=== PATIENT | male | born 1955 | race Caucasian/White ===

== ENCOUNTER 2017-11-15 09:46 | Outpatient (CLI) | payer BC ==
[2017-11-15] MEDS ORDERED: ISOVUE-370 76%-LOCM 1 ML ONE (12:50)
== END 2017-11-15 09:47 | disposition home or self-care (01) ==
LOC: BICCT 09:46
PROVIDERS: ATTEND Physician Assistant
DX: I25.10 Atherosclerotic heart disease of native coronary artery without angina pectoris (principal); I10 Essential (primary) hypertension; I70.1 Atherosclerosis of renal artery
CPT/HCPCS: 74175

== ENCOUNTER 2018-10-05 09:56 | Outpatient (CLI) | payer BC ==
--- NOTE | 2018-10-05 12:59 | MRI ---
MRI OF THE ABDOMEN WITHOUT AND WITH CONTRAST: COMPARISON: None. HISTORY: Acute cholecystitis. Cholelithiasis with obstruction. Epigastric pain. The patient has a drainage tube in the right side of the abdomen. TECHNIQUE: Multiplanar, multisequence MR images were obtained of the abdomen without and with IV contrast. MRCP images were performed. FINDINGS: The gallbladder contains a thickened wall. There is a tract extending from the right abdominal wall down towards the gallbladder and there likely is a percutaneous cholecystotomy tube in the gallbladde r. Small dependent filling defects in the gallbladder likely represent gallstones. No intrahepatic biliary dilatation or common bile duct dilatation is seen. No focal liver masses are seen. No abnormal signal is seen on out of phase images in the liver to garcía ggest fatty infiltration. The kidneys, adrenal glands, spleen, and pancreas are unremarkable. No abdominal adenopathy is seen. No abnormal enhancement is seen within the solid organs. There are small bilateral pleural effusions. The osseous structures are unremarkable. IMPRESSION: 1. Cholelithiasis without evidence of biliary dilatation. 2. There is thickening of the gallbladder wall which suggests acute cholecystitis. POS: [facility]
== END 2018-10-05 09:57 | disposition home or self-care (01) ==
LOC: SCSMRI 09:56
PROVIDERS: ATTEND Internal Medicine Gastroenterology
DX: K80.81 Other cholelithiasis with obstruction (principal); R10.13 Epigastric pain; K21.9 Gastro-esophageal reflux disease without esophagitis; K82.8 Other specified diseases of gallbladder
CPT/HCPCS: 74183

== ENCOUNTER 2018-10-18 12:18 | Outpatient (CLI) | payer BC ==
[2018-10-18 15:01] LABS: #Basophils 0.1 thou/uL (0.0-0.2); #Eosinphils 0.2 thou/uL (0.0-0.7); #Monocytes 0.7 thou/uL (0.11-0.59); #Neutrophils 6.9 thou/uL (1.40-6.50); %Basophils 0.7 % (0.0-1.0); %Eosinophils 2.2 % (0.0-10.0); %Lymphocytes 20.4 % (21.0-51.0); %Monocytes 6.7 % (0.0-10.0); Hemoglobin 14.3 g/dL (14.0-18.0); Mean Corpuscular HGB CONC 32.9 g/dL (32.0-36.0); Mean Corpuscular Hemoglobin 28.6 pg (27.0-31.0); Mean Corpuscular Volume 87.1 fL (78.0-98.0); Mean Platelet Volume 7.7 fL (7.4-10.4); Platelet Count 258 thou/uL (130-400); RBC Distribution Width 13.8 % (11.5-14.5); White Blood Cell (WBC) Count 9.9 thou/uL (4.8-10.8)
[2018-10-18 15:35] LABS: ALT (SGPT) Less than 7 U/L (8-55); AST (SGOT) 14 U/L (5-34); Albumin 3.7 g/dL (3.4-4.8); Alkaline Phosphatase 94 U/L (40-150); Anion Gap 14 mmol/L (10-20); BUN (Urea Nitrogen) 27 mg/dL (8.4-25.7); Bilirubin, Total 0.5 mg/dL (0.2-1.2); Calc. Creatinine Clearance 0 mL/min (70-130); Calcium 9.7 mg/dL (7.8-10.44); Carbon Dioxide 26 mmol/L (23-31); Chloride 102 mmol/L (98-107); Estimated GFR-MDRD 45; Globulin 3.3 g/dL (2.4-3.5); Glucose 289 mg/dL (80-115); Potassium 4.3 mmol/L (3.5-5.1); Sodium 138 mmol/L (136-145)
== END 2018-10-18 12:19 | disposition home or self-care (01) ==
LOC: LABBT 12:18
PROVIDERS: ATTEND Internal Medicine Cardiovascular Disease
DX: Z01.812 Encounter for preprocedural laboratory examination (principal)
CPT/HCPCS: 80053; 85025

== ENCOUNTER → 2018-10-19 | Day surgery (SDC) | payer BC ==
[2018-10-18 13:30] VITALS: BMI 30.2
[~2018-10-19] MED LIST: Iopamidol 370 76% 100 ML VIAL ONE
== END ==
LOC: CCL 10:12
PROVIDERS: ATTEND Internal Medicine Cardiovascular Disease
DX: I42.9 Cardiomyopathy, unspecified (principal); Z53.9 Procedure and treatment not carried out, unspecified reason; Z88.5 Allergy status to narcotic agent; Z88.8 Allergy status to other drugs, medicaments and biological substances; Z91.09 Other allergy status, other than to drugs and biological substances; Z79.899 Other long term (current) drug therapy
CPT/HCPCS: 93458

== ENCOUNTER 2018-10-24 13:32 | Inpatient (IN) | payer BC ==
[2018-10-24] MEDS ORDERED: Diazepam 5 MG TAB PO SCH (14:00)
[2018-10-24] MEDS ORDERED: HOLD HYPOGLYCEMIC MEDS AM OF CATH FS SCH (14:00)
[2018-10-24] MEDS: Sodium Chloride 0.9% 1,000 ML IV SCH (15:58)
[2018-10-24] MEDS ORDERED: predniSONE 20 MG TAB PO SCH (16:15)
[2018-10-24] MEDS ORDERED: diphenhydrAMINE 25 MG CAP PO SCH (16:15)
[2018-10-24 19:01] LABS: Anion Gap 14 mmol/L (10-20); BUN (Urea Nitrogen) 24 mg/dL (8.4-25.7); Calc. Creatinine Clearance 88 mL/min (70-130); Calcium 9.5 mg/dL (7.8-10.44); Carbon Dioxide 23 mmol/L (23-31); Chloride 103 mmol/L (98-107); Estimated GFR-MDRD 59; Glucose 206 mg/dL (80-115); Potassium 4.2 mmol/L (3.5-5.1); Sodium 136 mmol/L (136-145)
[2018-10-24] MEDS ORDERED: DC ENOXAPARIN NIGHT BEFORE CATH FS SCH (22:00)
[2018-10-25] MEDS: predniSONE 20 MG TAB PO SCH ×2 (00:27→05:56)
[2018-10-25] MEDS: diphenhydrAMINE 25 MG CAP PO SCH ×2 (00:30→05:56)
[2018-10-25] MEDS: Sodium Chloride 0.9% 1,000 ML IV SCH (02:27)
[2018-10-25] MEDS ORDERED: Midazolam HCl 2 mg/2 ml Vial ONE (07:58)
[2018-10-25] MEDS ORDERED: Nitroglycerin 0.4 MG TAB (25 Tab Bottle) SL PRN (08:53)
[2018-10-25] MEDS ORDERED: Sodium Chloride 0.9% 200 ML IV PRN (08:53)
[2018-10-25] MEDS ORDERED: Sodium Chloride 0.9% 1,000 ML IV SCH (09:00)
[2018-10-25] MEDS ORDERED: INSULIN DETEMIR SC PRN (12:44)
[2018-10-25] MEDS ORDERED: Diazepam 5 MG TAB PO PRN (12:45)
[2018-10-25] MEDS ORDERED: Communication Order-Pharmacy FS SCH (12:45)
--- NOTE | 2018-10-25 13:25 | CON ---
DATE OF CONSULTATION: 10/25/2018 REASON FOR CONSULTATION: Evaluate patient for coronary artery bypass grafting. HISTORY OF PRESENT ILLNESS: Mr. Aponte is a very pleasant 63-year-old gentleman who on September 05, 2018, was admitted to the bed with septic cholecystitis. He was placed on antibiotics, was in the hospital for approximately 4 days and discharged to home. He returned after less than a week to the hospital, was readmitted with septic cholecystitis. At this time, he had a percutaneous drain placed into his gallbladder and was continued on antibiotics. He was tried on Levaquin and Flagyl, but the Flagyl made him sick. He has been on Levaquin since that time. Echo performed at that time showed ejection fraction of 35-40 percent. He has a history of coronary artery disease status post stenting of a diagonal and this subsequently occluded. He underwent recent PET scan by Dr. Georges showing anterior ischemia. He was brought in for elective cardiac catheterization today. Catheterization shows critical lesions in his LAD, diagonal bifurcation, ramus, proximal circumflex artery, and main right coronary artery. Bypassable targets included LAD, diagonal, ramus, OM and distal right coronary. His radial artery is patent and Gee's test is equivocal. This will need to be repeated with plethysmography. From a symptomatology standpoint, he has not had any cardiac symptoms. He does woodworking at home. He also cares for 3 large dogs. He does not do any vigorous aerobic exercise, but does ride a stationary bicycle for approximately 30 minutes without chest pain or shortness of breath. PAST MEDICAL HISTORY: 1. Coronary artery disease. 2. Hypertension. 3. Diabetes mellitus-insulin dependent. 4. Dyslipidemia. 5. History of previous myocardial infarction. 6. Diverticulosis. 7. Acute cholecystitis, status post drainage procedure. PAST SURGICAL HISTORY: 1. Multiple orthopedic surgeries. 2. Tonsillectomy. SOCIAL HISTORY: He is a former smoker. He is and accompanied by his . He is not use alcohol or other drugs. ALLERGIES: 1. IODINE. 2. MORPHINE. REVIEW OF SYSTEMS: A 10-point review of systems is performed is negative except as above. PHYSICAL EXAMINATION: GENERAL: This is a well-developed, well-nourished male, resting comfortably in his room post catheterization. VITAL SIGNS: Height is 6 feet 2 inches, weight is 228 pounds, BSA is 2.32, temperature is 97.5, pulse is 69 and regular, blood pressure is 128/60. HEENT: Sclerae nonicteric. Pupils are equal and round bilaterally. NECK: Supple without carotid bruit. CHEST: Clear bilaterally. HEART: Rhythm is regular without murmur. ABDOMEN: Soft and nontender. He has a drain on the right flank, passing through the liver and the gallbladder. EXTREMITIES: There is no signs of clubbing or edema. He does have chronic venous stasis changes below the knees bilaterally. PSYCHIATRIC: He is awake, alert, and oriented to person, place, and time. LABORATORY DATA: Of note, his potassium is 4.2, creatinine is 1.24. Blood sugars have ranged from 127-258, hemoglobin is 14.3, platelet count is 258,000. PT/INR is 1.0. ASSESSMENT AND PLAN: This is a pleasant 63-year-old gentleman who from a cardiac standpoint has 3-vessel disease with depressed left ventricular function. Coronary bypass grafting has been recommended. I have discussed left internal mammary artery, left radial artery, and saphenous vein grafts to potential targets including left anterior descending artery, diagonal, ramus, obtuse marginal, and right coronary. He is agreeable and wishes to proceed as soon as possible. In regard to his septic cholecystitis, his drain is nonfunctional. I have discussed this with Dr. Phillip. They are going to do a tube check tomorrow and hopefully reposition his drain back inside his gallbladder. We will continue his antibiotics and make plans for surgical intervention on Monday. PLANS: For surgical intervention on Monday and start. Job ID: [id number]
--- NOTE | 2018-10-25 14:14 | RAD ---
AP CHEST: History: Pre-operative chest radiograph. Date: 10-25-18 Comparison: 03-05-12 FINDINGS: AP chest demonstrates calcification of the aorta. The lungs are well aerated. No evidence of active i ntrathoracic disease seen. No evidence of effusions, pneumonia, or pneumothorax seen. IMPRESSION: Unremarkable AP chest. POS: [facility]
--- NOTE | 2018-10-25 15:50 | CT ---
NONCONTRAST ENHANCED CT ABDOMEN WITHOUT CONTRAST: Indication: Question of position of cholecystostomy catheter. Technique: Noncontrast enhanced CT images of the abdomen performed. FINDINGS: The lung bases are unremarkable. No evidence of free intraperitoneal air seen. Extensive sigmoid colonic diverticulosis is present. The liver and spleen are unremarkable. There is a cholecystostomy tube distal tip coiled within the e xpected location of the gallbladder fundus. The pancreas is unremarkable. The adrenal glands and kidn eys are unremarkable. IMPRESSION: Cholecystostomy tube appears to be in the gallbladder fundus. It has not pulled out. No adjacent area s of biloma seen. POS: [facility]
[2018-10-25] MEDS: Pioglitazone HCl 15 MG TAB PO SCH (16:29)
--- NOTE | 2018-10-25 16:35 | PDOC.GSPN ---
Surgery Progress Note: Subj - Subjective Patient reports: no new complaints Surgery Progress Note: Obj - Vital signs Vital signs: Vital Signs - Most Recent Temp Pulse Resp BP Pulse Ox 97.4 F L 73 20 136/68 95 10/25/18 16:14 10/25/18 16:14 10/25/18 16:14 10/25/18 16:14 10/25/18 16:14 - Physical Exam General: no distress Abdomen: soft, non tender Wound: other (The drain has some bilious drainage) Surgery Progress Note: Results - Labs Result Diagrams: 10/24/18 18:29 Lab results: Laboratory Results - last 24 hr 10/25/18 10/25/18 07:09 11:14 POC Glucose 258 H 252 H Surgery Progress Note: A/P - Problem (1) Chronic cholecystitis Current Visit: Yes Code(s): K81.1 - CHRONIC CHOLECYSTITIS Status: Acute - Plan Plan: He needs cholecystostomy tube to stay in for now. -Put in for CT to evaluate for placement -If not in gallbladder, will have IR replace.
[2018-10-25] MEDS ORDERED: metFORMIN 850 MG TAB PO SCH (17:00)
[2018-10-25] MEDS ORDERED: Non-Formulary Item 1 EACH (Pioglitazone Hcl/Metformin Hcl [Actoplus Met] 1 TABLET) PO SCH (17:00)
[2018-10-25] MEDS ORDERED: Dextrose 5% in Water 1,000 ML IV PRN (17:14)
[2018-10-25] MEDS ORDERED: Dextrose 50% Abboject 50 ML SYRINGE IVP PRN (17:14)
[2018-10-25] MEDS: HumaLOG 300 UNITS/3 ML VIAL SC PRN ×2 (17:40→21:16)
[2018-10-25] MEDS: Amlodipine 5 MG TAB PO SCH (20:33)
[2018-10-25] MEDS: Ezetimibe 10 MG TAB PO SCH (20:34)
[2018-10-25] MEDS: Lisinopril 20 MG TAB PO SCH (20:34)
[2018-10-25] MEDS: Aspirin 81 mg Enteric Coated Tablet PO SCH (20:34)
[2018-10-25] MEDS ORDERED: Lisinopril 20 MG TAB PO SCH (21:00)
[2018-10-25] MEDS ORDERED: Ezetimibe 10 MG TAB PO SCH (21:00)
[2018-10-25] MEDS ORDERED: Amlodipine 5 MG TAB PO SCH (21:00)
[2018-10-26 05:27] LABS: Anion Gap 15 mmol/L (10-20); BUN (Urea Nitrogen) 37 mg/dL (8.4-25.7); Calc. Creatinine Clearance 86 mL/min (70-130); Calcium 8.9 mg/dL (7.8-10.44); Carbon Dioxide 20 mmol/L (23-31); Chloride 101 mmol/L (98-107); Estimated GFR-MDRD 57; Glucose 265 mg/dL (80-115); Potassium 4.2 mmol/L (3.5-5.1); Sodium 132 mmol/L (136-145)
[2018-10-26] MEDS: HumaLOG 300 UNITS/3 ML VIAL SC PRN ×4 (06:15→21:03)
[2018-10-26] MEDS: Pioglitazone HCl 15 MG TAB PO SCH ×2 (08:25→16:44)
[2018-10-26] MEDS ORDERED: Furosemide 40 MG TAB PO SCH (09:00)
[2018-10-26] MEDS ORDERED: Non-Formulary Item 1 EACH (Empagliflozin [Jardiance] 1 TAB) PO SCH (09:00)
[2018-10-26] MEDS ORDERED: PRE FILLED SC SCH (09:00)
[2018-10-26] MEDS ORDERED: DEXILANT 30 MG PO SCH (09:00)
[2018-10-26] MEDS ORDERED: Non-Formulary Item 1 EACH (Vit D3-Vit K/Berberine/Hops [Ostera Tablet] 1 TAB) PO SCH (09:00)
[2018-10-26] MEDS ORDERED: INSULIN GLARGINE SC SCH (09:00)
--- NOTE | 2018-10-26 18:23 | PDOC.PN ---
- Subjective Encounter Start Date: 10/26/18 Encounter Start Time: 17:30 Subjective: no chest pain or sob -: will have cabg on monday -: is ambulating well on the floor - Objective MAR Reviewed: Yes Vital Signs & Weight: Vital Signs (12 hours) Temp Pulse Resp BP BP Pulse Ox 10/26/18 15:07 97.9 F 65 16 124/69 96 10/26/18 11:24 97.5 F L 63 18 124/72 95 10/26/18 07:41 97.3 F L 64 14 132/73 94 L Weight Weight 230 lb 4.8 oz I&O: 10/25/18 10/26/18 10/27/18 06:59 06:59 06:59 Intake Total 2340 2820 Output Total 400 Balance 2340 2420 Result Diagrams: 10/26/18 04:42 Additional Labs: Accuchecks 10/26/18 10/26/18 10/25/18 10:44 06:15 20:47 POC Glucose 364 H 234 H 261 H Phys Exam - Physical Examination HEENT: PERRLA, moist MMs Neck: no JVD, supple Respiratory: no wheezing, no rales Cardiovascular: RRR, no significant murmur Gastrointestinal: soft, non-tender, positive bowel sounds percut biliary drain+ nonfunctional at present Musculoskeletal: no edema, pulses present Neurological: non-focal, moves all 4 limbs Psychiatric: normal affect, A&O x 3 Dx/Plan (1) CAD (coronary artery disease) Code(s): I25.10 - ATHSCL HEART DISEASE OF [place] CORONARY ARTERY W/O ANG PCTRS Status: Acute Qualifiers: Coronary Disease-Associated Artery/Lesion type: [place] artery [place] vs. transplanted heart: [place] heart Associated angina: without angina Qualified Code(s): I25.10 - Atherosclerotic heart disease of [place] coronary artery without angina pectoris Comment: for cabg on Monday (2) DM type 2 (diabetes mellitus, type 2) Status: Chronic Qualifiers: Diabetes mellitus hockey instructor insulin use: with fci use Diabetes mellitus complication status: with unspecified complications Qualified Code(s) : E11.8 - Type 2 diabetes mellitus with unspecified complications; Z79.4 - county director welfare (current) use of insulin (3) HTN (hypertension) Code(s): I10 - ESSENTIAL (PRIMARY) HYPERTENSION Status: Chronic Qualifiers: Hypertension type: essential hypertension Qualified Code(s): I10 - Essential (primary) hypertension (4) Dyslipidemia Code(s): E78.5 - HYPERLIPIDEMIA, UNSPECIFIED Status: Chronic (5) Chronic cholecystitis Code(s): K81.1 - CHRONIC CHOLECYSTITIS Status: Chronic Comment: had cholecystitis with sepsis 09/05/2018 s/p percut cholecystostomy tube - Plan lantus 25u bid, home dose of jardiance -: metformin 1g bid, januvia 50mg daily both to be dc'd on monday night -: continue aspirin, toprol xl, lisinopril, norvasc, zetia -: will add crestor -: levaquin 500mg daily for cholecystitis * . Review of Systems - Medications/Allergies Allergies/Adverse Reactions: Allergies Allergy/AdvReac Type Severity Reaction Status Date / Time iodine Allergy Anaphylaxis Verified 10/18/18 13:27 morphine Allergy Anxiety Verified 10/18/18 13:27 opiates Allergy Anxiety Uncoded 10/18/18 13:26 Medications: Current Medications Amlodipine Besylate (Norvasc) 5 mg PO QPM [facility] Last Admin: 10/25/18 20:33 Dose: 5 mg Aspirin (Ecotrin) 81 mg PO QPM [facility] Last Admin: 10/25/18 20:34 Dose: 81 mg Dextrose/Water (Dextrose 50%) 25 gm IVP PRN PRN PRN Reason: HYPOGLYCEMIA PROTOCOL Diazepam (Valium) 5 mg PO HSPRN PRN PRN Reason: Insomnia Ezetimibe (Zetia) 10 mg PO HS [facility] Last Admin: 10/25/18 20:34 Dose: 10 mg Glucagon (Glucagon) 1 mg IM PRN PRN PRN Reason: HYPOGLYCEMIA PROTOCOL Levofloxacin 750 mg/ Device 150 mls @ 100 mls/hr IVPB Q24HR [facility] Last Admin: 10/26/18 14:20 Dose: 150 mls Vancomycin HCl 1.5 gm/ Sodium (Chloride) 300 mls @ 200 mls/hr IVPB ONCALL-OR [facility] Dextrose/Water (D5w) 1,000 mls @ 0 mls/hr IV INF PRN PRN Reason: HYPOGLYCEMIA PROTOCOL Insulin Glargine 1 units/ (Miscellaneous Medication) 0.01 mls @ 0 mls/hr SC QAM [facility] Insulin Human Lispro (Humalog) 0 units SC .MODERATE SLIDING SC PRN; Protocol PRN Reason: MODERATE SLIDING SCALE Last Admin: 10/26/18 16:45 Dose: 6 units Insulin Human Lispro (Humalog) 0 units SC .BEDTIME SLIDING SC PRN; Protocol PRN Reason: BEDTIME SLIDING SCALE Last Admin: 10/25/18 21:16 Dose: 3 unit Lisinopril (Zestril) 20 mg PO QPM [facility] Last Admin: 10/25/18 20:34 Dose: 20 mg Metoprolol Succinate (Toprol Xl) 50 mg PO QPM [facility] Last Admin: 10/25/18 20:34 Dose: 50 mg Miscellaneous Information (Communication Order-Pharmacy) 1 each FS ASDIR [facility] Nitroglycerin (Nitrostat) 0.4 mg SL Q5MIN PRN PRN Reason: Chest Pain Pantoprazole Sodium (Protonix) 40 mg PO DAILY [facility] Last Admin: 10/26/18 08:26 Dose: 40 mg [Ostera Tablet] 1 (Tab) 0 each PO DAILY [facility] Empagliflozin [ (Jardiance] 10 Mg) 0 each PO QAM [facility] Pioglitazone HCl (Actos) 15 mg PO BID-WM [facility] Last Admin: 10/26/18 16:44 Dose: 15 mg Sodium Chloride (Flush - Normal Saline) 10 ml IVF Q12HR [facility] Last Admin: 10/26/18 08:26 Dose: 10 ml Sodium Chloride (Flush - Normal Saline) 10 ml IVF PRN PRN PRN Reason: Saline Flush
[2018-10-26] MEDS: Lisinopril 20 MG TAB PO SCH (20:50)
[2018-10-26] MEDS: Ezetimibe 10 MG TAB PO SCH (20:51)
[2018-10-26] MEDS: Aspirin 81 mg Enteric Coated Tablet PO SCH (20:51)
[2018-10-26] MEDS: Amlodipine 5 MG TAB PO SCH (20:54)
[2018-10-26] MEDS: Insulin Glargine 25 UNITS in Pre-Filled Syringe SC SCH (20:56)
[2018-10-26] MEDS ORDERED: Rosuvastatin 20 MG TAB PO SCH (21:00)
[2018-10-27] MEDS: metFORMIN 500 MG TAB PO SCH ×2 (08:22→17:53)
[2018-10-27] MEDS: Pioglitazone HCl 15 MG TAB PO SCH ×2 (08:22→17:53)
[2018-10-27] MEDS: Alogliptin 25 MG TAB PO SCH (08:22)
[2018-10-27] MEDS: Insulin Glargine 25 UNITS in Pre-Filled Syringe SC SCH ×2 (08:23→21:31)
[2018-10-27] MEDS: HumaLOG 300 UNITS/3 ML VIAL SC PRN ×2 (08:24→12:25)
--- NOTE | 2018-10-27 10:40 | PDOC.CTH ---
Cardiology Progress Note - Subjective Seen 10/26 at 1440 patient up walking in guerrier. No complaints. Awaiting CABG Monday. No CP, SOB or GAN - Objective Vital Signs Temp Pulse Resp BP BP Pulse Ox 10/27/18 08:20 97.7 F 63 16 190/88 H 97 10/27/18 04:00 97.9 F 61 18 164/81 H 95 10/26/18 23:00 97.5 F L 69 16 164/79 H 95 Weight 220 lb 12.8 oz 10/26/18 10/27/18 10/28/18 06:59 06:59 07:59 Intake Total 2820 1380 Output Total 400 1100 Balance 2420 280 - Physical Examination General/Neuro: alert & oriented x3 Neck: no JVD present Lungs: CTA Heart: RRR Abdomen: NT/ND - Telemetry Telemetry Rhythm: SR - Labs Result Diagrams: 10/26/18 04:42 - Assessment/Plan 1. ICMO 2. CAD 3. IDDM 4. Mixed HLD 5. Recent cholecystitis with sepsis and tube placement 08/2018. Tube still in place. No changes to care. Continue adjusting insulin as needed.
--- NOTE | 2018-10-27 10:45 | PDOC.CTH ---
Cardiology Progress Note - Subjective patient seen 10/27. Up walking in room. No CP, SOB or GAN. - Objective Vital Signs Temp Pulse Resp BP BP Pulse Ox 10/27/18 08:20 97.7 F 63 16 190/88 H 97 10/27/18 04:00 97.9 F 61 18 164/81 H 95 10/26/18 23:00 97.5 F L 69 16 164/79 H 95 Weight 220 lb 12.8 oz 10/26/18 10/27/18 10/28/18 06:59 06:59 07:59 Intake Total 2820 1380 Output Total 400 1100 Balance 2420 280 - Physical Examination General/Neuro: alert & oriented x3 Neck: no JVD present Lungs: CTA Heart: RRR Abdomen: NT/ND - Telemetry Telemetry Rhythm: SR - Labs Result Diagrams: 10/27/18 10:53 10/27/18 10:53 - Assessment/Plan 1. ICMO 2. CAD 3. IDDM 4. HTN 5. Recent episode of sepsis from cholecystitis and s/p tube placement 6. Mixed HLD For CABG Monday.
[2018-10-27 11:09] LABS: #Eosinphils 0.1 thou/uL (0.0-0.7); #Lymphocytes 1.3 thou/uL (1.20-3.40); #Monocytes 0.6 thou/uL (0.11-0.59); #Neutrophils 4.5 thou/uL (1.40-6.50); %Basophils 0.4 % (0.0-1.0); %Eosinophils 1.5 % (0.0-10.0); %Lymphocytes 19.7 % (21.0-51.0); %Monocytes 8.7 % (0.0-10.0); %Neutrophils 69.8 % (42.0-75.0); Hemoglobin 14.8 g/dL (14.0-18.0); Mean Corpuscular HGB CONC 31.9 g/dL (32.0-36.0); Mean Corpuscular Hemoglobin 27.6 pg (27.0-31.0); Mean Corpuscular Volume 86.5 fL (78.0-98.0); Mean Platelet Volume 7.6 fL (7.4-10.4); Platelet Count 245 thou/uL (130-400); RBC Distribution Width 13.7 % (11.5-14.5); Red Blood Cell (RBC) Count 5.37 mill/uL (4.70-6.10); White Blood Cell (WBC) Count 6.4 thou/uL (4.8-10.8)
[2018-10-27 11:16] LABS: PTT 25.9 SEC (22.9-36.1); Prothrombin Time 13.5 SEC (12.0-14.7)
[2018-10-27 11:32] LABS: ALT (SGPT) 12 U/L (8-55); AST (SGOT) 13 U/L (5-34); Albumin 3.5 g/dL (3.4-4.8); Alkaline Phosphatase 128 U/L (40-150); Anion Gap 11 mmol/L (10-20); BUN (Urea Nitrogen) 22 mg/dL (8.4-25.7); Bilirubin, Total 0.4 mg/dL (0.2-1.2); Calc. Creatinine Clearance 91 mL/min (70-130); Calcium 9.3 mg/dL (7.8-10.44); Carbon Dioxide 24 mmol/L (23-31); Chloride 102 mmol/L (98-107); Estimated GFR-MDRD 63; Glucose 328 mg/dL (80-115); Potassium 4.2 mmol/L (3.5-5.1); Protein, Total 6.5 g/dL (5.8-8.1); Sodium 133 mmol/L (136-145)
[2018-10-27] MEDS: Empagliflozin [Jardiance] 10 MG PO SCH ×2 (12:10→12:24)
--- NOTE | 2018-10-27 12:35 | PDOC.PN ---
- Subjective Encounter Start Date: 10/27/18 Encounter Start Time: 07:30 Subjective: no chest pain or sob -: is amb in hallway -: says he intolerant to statins and gets muscle aches - Objective MAR Reviewed: Yes Vital Signs & Weight: Vital Signs (12 hours) Temp Pulse Resp BP BP Pulse Ox 10/27/18 11:54 69 18 131/74 98 10/27/18 08:20 97.7 F 63 16 190/88 H 97 10/27/18 04:00 97.9 F 61 18 164/81 H 95 Weight Weight 220 lb 12.8 oz I&O: 10/26/18 10/27/18 10/28/18 06:59 06:59 07:59 Intake Total 2820 1380 Output Total 400 1100 Balance 2420 280 Result Diagrams: 10/27/18 10:53 10/27/18 10:53 Additional Labs: Accuchecks 10/27/18 10/26/18 10/26/18 05:53 20:30 16:37 POC Glucose 236 H 265 H 273 H Phys Exam - Physical Examination HEENT: PERRLA, moist MMs Neck: no JVD, supple Respiratory: no wheezing, no rales Cardiovascular: RRR, no significant murmur Gastrointestinal: soft, non-tender, positive bowel sounds Musculoskeletal: no edema, pulses present Neurological: non-focal, moves all 4 limbs Psychiatric: normal affect, A&O x 3 Dx/Plan (1) CAD (coronary artery disease) Code(s): I25.10 - ATHSCL HEART DISEASE OF [place] CORONARY ARTERY W/O ANG PCTRS Status: Acute Qualifiers: Coronary Disease-Associated Artery/Lesion type: [place] artery [place] vs. transplanted heart: [place] heart Associated angina: without angina Qualified Code(s): I25.10 - Atherosclerotic heart disease of [place] coronary artery without angina pectoris Comment: for cabg on Monday (2) DM type 2 (diabetes mellitus, type 2) Status: Chronic Qualifiers: Diabetes mellitus long term care administrator insulin use: with detention use Diabetes mellitus complication status: with unspecified complications Qualified Code(s) : E11.8 - Type 2 diabetes mellitus with unspecified complications; Z79.4 - assisted (current) use of insulin (3) HTN (hypertension) Code(s): I10 - ESSENTIAL (PRIMARY) HYPERTENSION Status: Chronic Qualifiers: Hypertension type: essential hypertension Qualified Code(s): I10 - Essential (primary) hypertension (4) Dyslipidemia Code(s): E78.5 - HYPERLIPIDEMIA, UNSPECIFIED Status: Chronic (5) Chronic cholecystitis Code(s): K81.1 - CHRONIC CHOLECYSTITIS Status: Chronic Comment: had cholecystitis with sepsis 09/05/2018 s/p percut cholecystostomy tube - Plan for cabg on monday -: is on asp, zetia, norvasc, lisinopril, toprol xl -: continue actos, lantus, metformin -: levaquin for cholecystitis -: baseline labs prior to cabg is normal * . Review of Systems - Medications/Allergies Allergies/Adverse Reactions: Allergies Allergy/AdvReac Type Severity Reaction Status Date / Time iodine Allergy Anaphylaxis Verified 10/27/18 06:47 morphine Allergy Anxiety Verified 10/27/18 06:47 [id number]-[id number] Reductase Allergy Verified 10/27/18 06:47 Inhibitor opiates Allergy Anxiety Uncoded 10/27/18 06:47 Medications: Current Medications Alogliptin Benzoate (Alogliptin) 12.5 mg PO DAILY [facility] Last Admin: 10/27/18 08:22 Dose: 12.5 mg Amlodipine Besylate (Norvasc) 5 mg PO QPM [facility] Last Admin: 10/26/18 20:54 Dose: 5 mg Aspirin (Ecotrin) 81 mg PO QPM [facility] Last Admin: 10/26/18 20:51 Dose: 81 mg Dextrose/Water (Dextrose 50%) 25 gm IVP PRN PRN PRN Reason: HYPOGLYCEMIA PROTOCOL Diazepam (Valium) 5 mg PO HSPRN PRN PRN Reason: Insomnia Ezetimibe (Zetia) 10 mg PO HS [facility] Last Admin: 10/26/18 20:51 Dose: 10 mg Glucagon (Glucagon) 1 mg IM PRN PRN PRN Reason: HYPOGLYCEMIA PROTOCOL Vancomycin HCl 1.5 gm/ Sodium (Chloride) 300 mls @ 200 mls/hr IVPB ONCALL-OR [facility] Dextrose/Water (D5w) 1,000 mls @ 0 mls/hr IV INF PRN PRN Reason: HYPOGLYCEMIA PROTOCOL Insulin Glargine 25 units/ (Miscellaneous Medication) 0.25 mls @ 0 mls/hr SC BID [facility] Last Admin: 10/27/18 08:23 Dose: 0.25 mls Levofloxacin 500 mg/ Device 100 mls @ 100 mls/hr IVPB 1400 [facility] Insulin Human Lispro (Humalog) 0 units SC .MODERATE SLIDING SC PRN; Protocol PRN Reason: MODERATE SLIDING SCALE Last Admin: 10/27/18 12:25 Dose: 6 units Insulin Human Lispro (Humalog) 0 units SC .BEDTIME SLIDING SC PRN; Protocol PRN Reason: BEDTIME SLIDING SCALE Last Admin: 10/26/18 21:03 Dose: 3 unit Lisinopril (Zestril) 20 mg PO QPM [facility] Last Admin: 10/26/18 20:50 Dose: 20 mg Metformin HCl (Glucophage) 1,000 mg PO BID-[facility] Last Admin: 10/27/18 08:22 Dose: 1,000 mg Metoprolol Succinate (Toprol Xl) 50 mg PO QPM [facility] Last Admin: 10/26/18 20:53 Dose: 50 mg Miscellaneous Information (Communication Order-Pharmacy) 1 each FS ASDIR [facility] Nitroglycerin (Nitrostat) 0.4 mg SL Q5MIN PRN PRN Reason: Chest Pain Pantoprazole Sodium (Protonix) 40 mg PO DAILY [facility] Last Admin: 10/27/18 08:23 Dose: 40 mg [Ostera Tablet] 1 (Tab) 0 each PO DAILY [facility] Empagliflozin [ (Jardiance] 10 Mg) 0 each PO QAM [facility] Last Admin: 10/27/18 12:24 Dose: 1 each Pioglitazone HCl (Actos) 15 mg PO BID-[facility] Last Admin: 10/27/18 08:22 Dose: 15 mg Rosuvastatin Calcium (Crestor) 20 mg PO HS [facility] Last Admin: 10/26/18 20:51 Dose: 20 mg Sodium Chloride (Flush - Normal Saline) 10 ml IVF Q12HR [facility] Last Admin: 10/26/18 20:50 Dose: 10 ml Sodium Chloride (Flush - Normal Saline) 10 ml IVF PRN PRN PRN Reason: Saline Flush
[2018-10-27] MEDS: Aspirin 81 mg Enteric Coated Tablet PO SCH (21:32)
[2018-10-27] MEDS: Ezetimibe 10 MG TAB PO SCH (21:32)
[2018-10-27] MEDS: Amlodipine 5 MG TAB PO SCH (21:32)
[2018-10-27] MEDS: Lisinopril 20 MG TAB PO SCH (21:32)
[2018-10-28] MEDS: Alogliptin 25 MG TAB PO SCH (08:18)
[2018-10-28] MEDS: metFORMIN 500 MG TAB PO SCH ×2 (08:18→16:08)
[2018-10-28] MEDS: Insulin Glargine 25 UNITS in Pre-Filled Syringe SC SCH ×2 (08:18→21:09)
[2018-10-28] MEDS: Pioglitazone HCl 15 MG TAB PO SCH ×2 (08:18→16:08)
[2018-10-28] MEDS: Empagliflozin [Jardiance] 10 MG PO SCH (08:18)
--- NOTE | 2018-10-28 10:08 | PDOC.CTH ---
Cardiology Progress Note - Subjective Patient out of room. Reviewed chart and tele. no overnight events. - Objective Vital Signs Temp Pulse Resp BP BP BP Pulse Ox 10/28/18 08:13 98 F 65 16 142/83 H 98 10/28/18 04:00 98.0 F 65 20 175/82 H 95 10/27/18 21:32 73 10/27/18 21:28 97.9 F 73 16 201/98 H 97 Weight 220 lb 10/27/18 10/28/18 10/29/18 05:59 06:59 06:59 Intake Total Output Total Balance - Telemetry Telemetry Rhythm: SR - Labs Result Diagrams: 10/27/18 10:53 10/27/18 10:53 - Assessment/Plan 1. ICMO 2. CAD 3. IDDM 4. HTN 5. Recent episode of sepsis from cholecystitis and s/p tube placement 6. Mixed HLD For CABG tomorrow. No changes on my part.
[2018-10-28] MEDS ORDERED: Docusate 100 MG CAP PO SCH (12:00)
[2018-10-28] MEDS ORDERED: Polyethylene Glycol 3350 17 GM Packet PO SCH (12:00)
--- NOTE | 2018-10-28 14:42 | PDOC.PN ---
- Subjective Encounter Start Date: 10/28/18 Encounter Start Time: 11:20 Subjective: no sob or chest pain -: is amb in hallway -: for cabg in am - Objective MAR Reviewed: Yes Vital Signs & Weight: Vital Signs (12 hours) Temp Pulse Resp BP BP Pulse Ox 10/28/18 11:11 98.1 F 71 16 170/82 H 98 10/28/18 08:15 98 10/28/18 08:13 98 F 65 16 142/83 H 98 10/28/18 04:00 98.0 F 65 20 175/82 H 95 Weight Weight 220 lb I&O: 10/27/18 10/28/18 10/29/18 05:59 06:59 06:59 Intake Total Output Total Balance Result Diagrams: 10/27/18 10:53 10/27/18 10:53 Additional Labs: Accuchecks 10/28/18 10/28/18 10/28/18 12:17 10:43 05:23 POC Glucose 192 H 273 H 161 H 10/27/18 10/27/18 20:32 16:43 POC Glucose 178 H 92 Phys Exam - Physical Examination HEENT: PERRLA, moist MMs Neck: no JVD, supple Respiratory: no wheezing, no rales Cardiovascular: RRR, no significant murmur Gastrointestinal: soft, non-tender, positive bowel sounds Musculoskeletal: no edema, pulses present Neurological: non-focal, moves all 4 limbs Psychiatric: normal affect, A&O x 3 Dx/Plan (1) CAD (coronary artery disease) Code(s): I25.10 - ATHSCL HEART DISEASE OF [place] CORONARY ARTERY W/O ANG PCTRS Status: Acute Qualifiers: Coronary Disease-Associated Artery/Lesion type: [place] artery [place] vs. transplanted heart: [place] heart Associated angina: without angina Qualified Code(s): I25.10 - Atherosclerotic heart disease of [place] coronary artery without angina pectoris Comment: for cabg on Monday (2) DM type 2 (diabetes mellitus, type 2) Status: Chronic Qualifiers: Diabetes mellitus mcfp insulin use: with vermin exterminator use Diabetes mellitus complication status: with unspecified complications Qualified Code(s) : E11.8 - Type 2 diabetes mellitus with unspecified complications; Z79.4 - senior care (current) use of insulin (3) HTN (hypertension) Code(s): I10 - ESSENTIAL (PRIMARY) HYPERTENSION Status: Chronic Qualifiers: Hypertension type: essential hypertension Qualified Code(s): I10 - Essential (primary) hypertension (4) Dyslipidemia Code(s): E78.5 - HYPERLIPIDEMIA, UNSPECIFIED Status: Chronic (5) Chronic cholecystitis Code(s): K81.1 - CHRONIC CHOLECYSTITIS Status: Chronic Comment: had cholecystitis with sepsis 09/05/2018 s/p percut cholecystostomy tube - Plan for cabg in am -: hemostable -: on asp, toprol xl, lisinopril, norvasc, zetia (intolerant to statins) -: continue lantus, metformin and actos (dc oral meds after tonights dose) -: Pt is educated about what to expect post procedure and icu stay etc * . Review of Systems - Medications/Allergies Allergies/Adverse Reactions: Allergies Allergy/AdvReac Type Severity Reaction Status Date / Time iodine Allergy Anaphylaxis Verified 10/27/18 06:47 morphine Allergy Anxiety Verified 10/27/18 06:47 [id number]-Lgf Reductase Allergy Verified 10/27/18 06:47 Inhibitor opiates Allergy Anxiety Uncoded 10/27/18 06:47 Medications: Current Medications Alogliptin Benzoate (Alogliptin) 12.5 mg PO DAILY [facility] Last Admin: 10/28/18 08:18 Dose: 12.5 mg Amlodipine Besylate (Norvasc) 5 mg PO QPM [facility] Last Admin: 10/27/18 21:32 Dose: 5 mg Aspirin (Ecotrin) 81 mg PO QPM [facility] Last Admin: 10/27/18 21:32 Dose: 81 mg Dextrose/Water (Dextrose 50%) 25 gm IVP PRN PRN PRN Reason: HYPOGLYCEMIA PROTOCOL Diazepam (Valium) 5 mg PO HSPRN PRN PRN Reason: Insomnia Docusate Sodium (Colace) 100 mg PO BID FERNANDO Ezetimibe (Zetia) 10 mg PO HS [facility] Last Admin: 10/27/18 21:32 Dose: 10 mg Glucagon (Glucagon) 1 mg IM PRN PRN PRN Reason: HYPOGLYCEMIA PROTOCOL Vancomycin HCl 1.5 gm/ Sodium (Chloride) 300 mls @ 200 mls/hr IVPB ONCALL-OR FERNANDO Dextrose/Water (D5w) 1,000 mls @ 0 mls/hr IV INF PRN PRN Reason: HYPOGLYCEMIA PROTOCOL Insulin Glargine 25 units/ (Miscellaneous Medication) 0.25 mls @ 0 mls/hr SC BID [facility] Last Admin: 10/28/18 08:18 Dose: 0.25 mls Levofloxacin 500 mg/ Device 100 mls @ 100 mls/hr IVPB 1400 [facility] Last Admin: 10/27/18 14:33 Dose: 100 mls Insulin Human Lispro (Humalog) 0 units SC .MODERATE SLIDING SC PRN; Protocol PRN Reason: MODERATE SLIDING SCALE Last Admin: 10/27/18 12:25 Dose: 6 units Insulin Human Lispro (Humalog) 0 units SC .BEDTIME SLIDING SC PRN; Protocol PRN Reason: BEDTIME SLIDING SCALE Last Admin: 10/26/18 21:03 Dose: 3 unit Lisinopril (Zestril) 20 mg PO QPM [facility] Last Admin: 10/27/18 21:32 Dose: 20 mg Metformin HCl (Glucophage) 1,000 mg PO BID-[facility] Last Admin: 10/28/18 08:18 Dose: 1,000 mg Metoprolol Succinate (Toprol Xl) 50 mg PO QPM [facility] Last Admin: 10/27/18 21:32 Dose: 50 mg Miscellaneous Information (Communication Order-Pharmacy) 1 each FS ASDIR [facility] Nitroglycerin (Nitrostat) 0.4 mg SL Q5MIN PRN PRN Reason: Chest Pain Pantoprazole Sodium (Protonix) 40 mg PO DAILY [facility] Last Admin: 10/28/18 08:18 Dose: 40 mg [Ostera Tablet] 1 (Tab) 0 each PO DAILY [facility] Empagliflozin [ (Jardiance] 10 Mg) 0 each PO QAM [facility] Last Admin: 10/28/18 08:18 Dose: 1 each Pioglitazone HCl (Actos) 15 mg PO BID-[facility] Last Admin: 10/28/18 08:18 Dose: 15 mg Polyethylene Glycol (Miralax) 17 gm PO DAILY [facility] Sodium Chloride (Flush - Normal Saline) 10 ml IVF Q12HR [facility] Last Admin: 10/28/18 08:19 Dose: 10 ml Sodium Chloride (Flush - Normal Saline) 10 ml IVF PRN PRN PRN Reason: Saline Flush
[2018-10-28] MEDS: Aspirin 81 mg Enteric Coated Tablet PO SCH (21:11)
[2018-10-28] MEDS: Lisinopril 20 MG TAB PO SCH (21:11)
[2018-10-28] MEDS: Docusate 100 MG CAP PO SCH (21:11)
[2018-10-28] MEDS: Amlodipine 5 MG TAB PO SCH (21:11)
[2018-10-28] MEDS: Ezetimibe 10 MG TAB PO SCH (21:11)
[2018-10-29] MEDS: metFORMIN 500 MG TAB PO SCH (06:25)
[2018-10-29] MEDS: Empagliflozin [Jardiance] 10 MG PO SCH (06:25)
[2018-10-29] MEDS: Pioglitazone HCl 15 MG TAB PO SCH (06:25)
[2018-10-29] MEDS: Alogliptin 25 MG TAB PO SCH (06:26)
[2018-10-29] MEDS: Docusate 100 MG CAP PO SCH (06:27)
[2018-10-29] MEDS ORDERED: Vancomycin HCl 1.5 GM in Sodium Chloride 0.9% 250 ML 300 ML IVPB SCH (06:30)
[2018-10-29] MEDS ORDERED: Albumin 5% 500 ML ONE (06:35)
[2018-10-29] MEDS ORDERED: Midazolam HCl 5 mg/5 ml Vial ONE (06:52)
[2018-10-29] MEDS ORDERED: Dexmedetomidine 200 MCG/2 ML VIAL ONE (06:52)
[2018-10-29] MEDS ORDERED: Vecuronium 10 MG VIAL ONE ×2 (06:52→16:52)
[2018-10-29] MEDS ORDERED: Fentanyl 250 MCG/5 ML VIAL ONE (06:52)
[2018-10-29] MEDS ORDERED: Norepinephrine 8 MG/0.9% NS 250 ML ONE (06:52)
[2018-10-29] MEDS ORDERED: Midazolam HCl 2 mg/2 ml Vial ONE (07:10)
[2018-10-29] MEDS ORDERED: Heparin 10,000 UNITS/1 ML VIAL 30,000 UNITS in Sodium Chloride 0.9% 1,000 ML FS SCH (07:15)
[2018-10-29] MEDS ORDERED: Dexamethasone 4 mg/ml Vial ONE (08:31)
[2018-10-29] MEDS ORDERED: Bupivacaine HCl 0.5%/Epinephrine 1:200,000/PF 30 ml Vial ONE (08:31)
[2018-10-29 08:54] LABS: Actual Bicarbonate (HCO3a) 21.5 mEq/L (22-28); Base Excess (BEa) -2.2 mEq/L (-2.0 to +3.0); CO2 Tension 33.6 mmHg (35.0-45.0); Calcium, Ionized 1.11 mmol/L (1.12-1.30); Carboxyhemoglobin (COHb) 0.7 gm% (0.0-3.0); Hemoglobin (Hb) 13.6 g/dL (14.0-18.0); O2 Tension (PaO2) 399.8 mmHg (> 80.0); pH, Arterial 7.42 (7.35-7.45)
[2018-10-29] MEDS ORDERED: Polyethylene Glycol 3350 17 GM Packet PO SCH (09:00)
[2018-10-29] MEDS ORDERED: Insulin Regular 300 UNITS/3 ML VIAL ONE (09:28)
[2018-10-29 09:34] LABS: Actual Bicarbonate (HCO3a) 24.5 mEq/L (22-28); Base Excess (BEa) -0.3 mEq/L (-2.0 to +3.0); Carboxyhemoglobin (COHb) 1.2 gm% (0.0-3.0); O2 Tension (PaO2) 384.1 mmHg (> 80.0); Potassium - ABG Lab 3.99 mmol/L (3.70-5.30)
[2018-10-29] MEDS: Insulin Glargine 25 UNITS in Pre-Filled Syringe SC SCH (10:37)
[2018-10-29] MEDS ORDERED: Nitroglycerin 50 MG/250 ML BOT 250 ML ONE (12:11)
[2018-10-29] MEDS ORDERED: HYDROcodone/Acetaminophen 5/325 mg Tablet PO PRN ×2 (12:21)
[2018-10-29] MEDS ORDERED: Acetaminophen 325 MG TAB PO PRN (12:21)
[2018-10-29] MEDS ORDERED: Norepinephrine 8 MG/0.9% NS 250 ML IVPB PRN (12:21)
[2018-10-29] MEDS ORDERED: Morphine 2 MG/ML SYRINGE SLOW IVP PRN (12:21)
[2018-10-29] MEDS ORDERED: Guaifenesin DM 100-10/5 ML UDCUP PO PRN (12:21)
[2018-10-29] MEDS ORDERED: Promethazine HCl 25 MG/ML VIAL IM PRN (12:21)
[2018-10-29] MEDS ORDERED: Mag-Al 1200 mg/1200 mg/30 ML UDCUP PO PRN (12:21)
[2018-10-29] MEDS ORDERED: Bisacodyl 10 MG SUPP PR PRN (12:21)
[2018-10-29] MEDS ORDERED: Ondansetron PF 4 MG/2 ML Vial IVP PRN (12:21)
[2018-10-29] MEDS ORDERED: Potassium Chloride 20 MEQ/100 ML PREMIX BAG IVPB PRN (12:21)
[2018-10-29] MEDS ORDERED: Fentanyl 100 MCG/2 ML VIAL SLOW IVP PRN ×2 (12:21)
[2018-10-29] MEDS ORDERED: hydrALAZINE 20 MG/ML VIAL SLOW IVP PRN (12:21)
[2018-10-29] MEDS ORDERED: Hetastarch 6% 500 ML 500 ML IVPB PRN (12:21)
[2018-10-29] MEDS ORDERED: Bisacodyl 5 MG TAB PO PRN (12:21)
[2018-10-29] MEDS ORDERED: Post-Op Insulin Drip Protocol IVPB ONE (12:21)
[2018-10-29] MEDS ORDERED: D5 1/2 NS w/20 mEq KCL 1,000 ML IV SCH (12:21)
[2018-10-29] MEDS ORDERED: Nitroglycerin 50 MG/250 ML BOT 250 ML IVPB PRN (12:21)
[2018-10-29] MEDS ORDERED: D5 1/2 NS w/20 mEq KCL 1,000 ML ONE (12:27)
[2018-10-29 12:32] LABS: Base Excess (BEa) -0.7 mEq/L (-2.0 to +3.0); CO2 Tension 45.2 mmHg (35.0-45.0); Calcium, Ionized 1.16 mmol/L (1.12-1.30); Carboxyhemoglobin (COHb) 1.1 gm% (0.0-3.0); Hemoglobin (Hb) 13.6 g/dL (14.0-18.0); O2 Tension (PaO2) 63.5 mmHg (> 80.0); Potassium - ABG Lab 3.73 mmol/L (3.70-5.30); pH, Arterial 7.36 (7.35-7.45)
[2018-10-29 12:37] LABS: Hemoglobin 13.3 g/dL (14.0-18.0); Mean Corpuscular HGB CONC 30.9 g/dL (32.0-36.0); Mean Corpuscular Hemoglobin 26.8 pg (27.0-31.0); Mean Corpuscular Volume 86.7 fL (78.0-98.0); Mean Platelet Volume 7.4 fL (7.4-10.4); Platelet Count 266 thou/uL (130-400); RBC Distribution Width 13.6 % (11.5-14.5); Red Blood Cell (RBC) Count 4.94 mill/uL (4.70-6.10); White Blood Cell (WBC) Count 24.5 thou/uL (4.8-10.8)
[2018-10-29] MEDS ORDERED: Insulin Regular 300 UNITS/3 ML VIAL SC PRN (12:41)
[2018-10-29] MEDS ORDERED: HUMULIN R 100 UNITS in Sodium Chloride 0.9% 100 ML IVPB SCH (12:41)
[2018-10-29] MEDS ORDERED: Dextrose 5% in Water 1,000 ML IV PRN (12:41)
[2018-10-29] MEDS ORDERED: Dextrose 50% Abboject 50 ML SYRINGE SLOW IVP PRN (12:41)
[2018-10-29 12:45] LABS: Puncture Site ALINE
[2018-10-29] MEDS ORDERED: Ketorolac Tromethamine 30 MG/ML VIAL IVP SCH (12:45)
[2018-10-29] MEDS ORDERED: Magnesium 2 GM/50 ML 2 GM in Premix Bag 1 BAG IVPB SCH (12:45)
--- NOTE | 2018-10-29 12:46 | OP ---
DATE OF PROCEDURE: 10/29/2018 PREOPERATIVE DIAGNOSES: Coronary artery disease/hypertension/hyperlipidemia/slightly depressed left ventricular ejection fraction/dyslipidemia. POSTOPERATIVE DIAGNOSES: Coronary artery disease/hypertension/hyperlipidemia/slightly depressed left ventricular ejection fraction/dyslipidemia. PROCEDURES PERFORMED: Coronary artery bypass grafting x4 - 1. Left internal mammary artery 2.0 mm distal left anterior descending - good conduit, diffusely diseased target. 2. Reverse saphenous vein to 1.25 mm diagonal - good conduit, diffusely diseased target. 3. Reversed saphenous vein to 1.5 mm ramus - good conduit and intramyocardial target. 4. Reversed saphenous vein to 1.5 mm distal right coronary artery - good conduit in target. SURGEON: Giancarlo Brantley MD & Dennys Marie MD ANESTHESIA: General endotracheal - Dr. Siddhartha Gonzales. PUMP TIME: 69 minutes. CROSS-CLAMP TIME: 39 minutes. LOW-CORE TEMPERATURE: 34 degrees Celsius. STACKER OPERATOR: Marisela Peralta. DRAINS: 24-Polish chest tubes x2. DRIPS: None. TRANSFUSIONS: None. DESCRIPTION OF PROCEDURE: After consent was obtained, the patient was brought to the operating room and placed in supine position on the operating room table. Appropriate lines and monitors were placed, and general endotracheal anesthesia was induced. Chest, abdomen, and legs were prepped and draped in usual sterile fashion. Greater saphenous vein was harvested from the left lower extremity utilizing an endoscopic technique. The vein from the right lower extremity was then harvested using an open skip-incision technique due to an adequate length of usable vein from the left leg. Median sternotomy was performed. Left internal mammary artery was harvested as a pedicle graft. The patient was systemically heparinized. Distal pedicle was divided and infused with papaverine. Thymic fat and pericardium were divided with electrocautery. Pericardial stay sutures were placed. Aortic and atrial cannulation was performed. After adequate heparinization, retrograde prime was performed. The patient was then placed on cardiopulmonary bypass. Distal targets were marked. Aortic cross-clamp was applied and antegrade sanguineous cardioplegic arrest was obtained. 1 L of antegrade cold cardioplegia was given. Topical cold solution was used. Reverse saphenous vein was anastomosed to the distal RCA in end-to-side fashion with running 7-0 Prolene suture. Anastomosis was tested and it was hemostatic. Reverse saphenous vein anastomosed to the ramus in an intramyocardial location with running 7-0 Prolene suture. Anastomosis was tested and it was hemostatic. Reverse saphenous vein was anastomosed to diagonal in an end-to-side fashion with running 7-0 Prolene suture. Anastomosis was tested and it was hemostatic. Mammary artery was then brought through window and the pericardium anastomosed to the distal LAD in an end-to-side fashion with running 7-0 Prolene suture. On release, mammary claims good occluding anastomosis and good distal flow. Pedicle was sutured with interrupted 6-0 Prolene suture. Cross-clamp was removed and partial occluding clamp was placed. Saphenous veins to the ramus and distal RCA were anastomosed to the aortic roots. Saphenous vein to the diagonal was anastomosed to the callejas of the ramus graft. Partial occluding clamp was removed and graft was deaired. Anastomoses were inspected for hemostasis, which was good. The patient was warmed and weaned from cardiopulmonary bypass. After resumption of sinus rhythm, good hemodynamics, temperature greater than 36.5, bypass was discontinued. Transfusion was given. Protamine was administered. Decannulation was performed and a pursestring suture was secured. A 24-Polish chest tubes were placed in the mediastinum. Vancomycin paste was placed on the edge of the sternum. After adequate hemostasis had been obtained, the sternum was closed with #7 wire. The sternum was treated with platelet rich plasma and wires twisted and buried. Presternal blocks were performed with Marcaine mixed with 4 mg of Decadron. Wounds were irrigated, treated with platelet poor plasma and closed in multiple layers. Needle, sponge, and instruments counts were all reported as correct at the end of the procedure. The patient was transferred to the intensive care unit in stable critical condition. Job ID: [id number] [facility]
[2018-10-29 12:47] LABS: INR-International Normal Ratio 1.2; PTT 27.8 SEC (22.9-36.1); Prothrombin Time 15.1 SEC (12.0-14.7)
[2018-10-29 12:53] LABS: Anion Gap 12 mmol/L (10-20); BUN (Urea Nitrogen) 17 mg/dL (8.4-25.7); Calc. Creatinine Clearance 101 mL/min (70-130); Calcium 8.3 mg/dL (7.8-10.44); Carbon Dioxide 25 mmol/L (23-31); Chloride 108 mmol/L (98-107); Estimated GFR-MDRD 72; Glucose 121 mg/dL (80-115); Potassium 3.9 mmol/L (3.5-5.1); Sodium 141 mmol/L (136-145)
[2018-10-29 13:05] LABS: Band 15 % (5-11); Eosinophils 2 % (0-10); Lymphocytes 9 % (21-51); MDiff Complete? YES; Metamyelocyte 1 % (0-0); Monocytes 6 % (0-10); Neutrophil 67 % (42-75); RBC Morphology Normal
--- NOTE | 2018-10-29 14:38 | RAD ---
CHEST 1 VIEW: INDICATION: Post CABG. COMPARISON: Prior exam dated 10/25/2018. FINDINGS: There are midline sternotomy changes and surgical clips overlying the mediastinum. There is mild car diomegaly. There is a left-[id number] thoracostomy tube. No pneumothorax is evident. There is mild le ft basilar atelectasis. There is a right subclavian central venous catheter projecting into the righ t atrium. IMPRESSION: 1. Postoperative chest without evidence of pneumothorax. 2. Left basilar atelectasis. 3. Left-sided thoracostomy tube and right-sided subclavian central venous catheter. 4. Mild cardiomegaly. POS: [facility]
[2018-10-29] MEDS ORDERED: Potassium Chloride 60 MEQ/30 ML VIAL ONE (16:52)
[2018-10-29] MEDS ORDERED: Papaverine 60 MG/2 ML VIAL ONE (16:52)
[2018-10-29] MEDS ORDERED: Heparin 30,000 units/30 ml VIAL ONE (16:52)
[2018-10-29] MEDS ORDERED: Magnesium 5 GM/10 ML VIAL ONE (16:52)
[2018-10-29] MEDS ORDERED: Glycopyrrolate 0.2 MG/ML 5 ML SYRINGE ONE (16:52)
[2018-10-29] MEDS ORDERED: Ondansetron PF 4 MG/2 ML Vial ONE (16:52)
[2018-10-29] MEDS ORDERED: Thrombin 5000 UNITS/5 ML VIAL ONE (16:52)
[2018-10-29] MEDS ORDERED: Aminocaproic Acid 5 GM/20 ML VIAL ONE (16:52)
[2018-10-29] MEDS ORDERED: Sodium Bicarb 50 MEQ/50 ML VIAL ONE (16:52)
[2018-10-29] MEDS ORDERED: PROPOFOL 200 MG/20 ML VIAL ONE (16:52)
[2018-10-29] MEDS ORDERED: Cardioplegic Soln 1,000 ML BAG ONE (16:52)
[2018-10-29] MEDS ORDERED: Heparin 5,000 UNITS/ML VIAL ONE (16:52)
[2018-10-29] MEDS ORDERED: Calcium Chloride 1 GM/10 ML Abboject SYRINGE ONE (16:52)
[2018-10-29] MEDS ORDERED: Protamine Sulfate 250 MG/25 ML VIAL ONE (16:52)
[2018-10-29] MEDS ORDERED: Lidocaine 2% PF 100 mg/5 ml Syringe ONE (16:52)
[2018-10-29 17:18] LABS: Hemoglobin 12.4 g/dL (14.0-18.0)
[2018-10-29] MEDS: Ketorolac Tromethamine 30 MG/ML VIAL IVP SCH (17:20)
[2018-10-29] MEDS: Vancomycin HCl 1.5 GM in Sodium Chloride 0.9% 250 ML 300 ML IVPB SCH (17:21)
[2018-10-29 17:56] LABS: Potassium 4.9 mmol/L (3.5-5.1)
--- NOTE | 2018-10-29 19:10 | PDOC.PN ---
- Subjective Encounter Start Date: 10/29/18 Encounter Start Time: 19:09 Subjective: s/p CABG, SLEEPY, pain after surgery - Objective Vital Signs & Weight: Vital Signs (12 hours) Temp Pulse Ox 10/29/18 16:00 97.7 F 10/29/18 12:30 96 10/29/18 12:10 96 10/29/18 12:06 97 10/29/18 12:05 98.0 F Weight Admit Weight 228 lb 2.855 oz Weight 220 lb Most Recent Monitor Data Heart Rate from ECG 69 NIBP 99/62 NIBP BP-Mean 74 Respiration from ECG 14 SpO2 99 I&O: 10/28/18 10/29/18 10/30/18 06:59 06:59 06:59 Intake Total 1680 971.0 Output Total 2000 637 Balance -320 334.0 Result Diagrams: 10/29/18 17:01 10/29/18 17:01 Additional Labs: Accuchecks 10/29/18 10/29/18 10/29/18 18:05 17:07 16:06 POC Glucose 150 H 134 H 132 H 10/29/18 10/29/18 10/29/18 14:58 14:01 12:58 POC Glucose 91 110 113 H 10/29/18 10/29/18 10/29/18 12:19 11:04 10:41 POC Glucose 110 111 H 123 H 10/29/18 10/29/18 10/29/18 09:58 09:28 08:27 POC Glucose 173 H 180 H 153 H 10/29/18 10/28/18 05:50 20:24 POC Glucose 177 H 245 H Phys Exam - Physical Examination HEENT: PERRLA, moist MMs, sclera anicteric, TM's clear, oral pharynx no lesions , 2+ tonsils Neck: no nodes, no JVD, supple, full ROM Respiratory: no wheezing, no rales, no rhonchi Cardiovascular: RRR, no significant murmur incision site covered in dressing, + chest tubes Gastrointestinal: soft, non-tender, no distention Musculoskeletal: no edema Neurological: non-focal, normal sensation, moves all 4 limbs Dx/Plan (1) CAD (coronary artery disease) Code(s): I25.10 - ATHSCL HEART DISEASE OF [place] CORONARY ARTERY W/O ANG PCTRS Status: Acute Qualifiers: Coronary Disease-Associated Artery/Lesion type: [place] artery [place] vs. transplanted heart: [place] heart Associated angina: without angina Qualified Code(s): I25.10 - Atherosclerotic heart disease of [place] coronary artery without angina pectoris Comment: S/P cabg on Monday, CONTINUE Aspirin (2) DM type 2 (diabetes mellitus, type 2) Status: Chronic Qualifiers: Diabetes mellitus termite control service representative insulin use: with termite control service representative use Diabetes mellitus complication status: with unspecified complications Qualified Code(s) : E11.8 - Type 2 diabetes mellitus with unspecified complications; Z79.4 - termite technician (current) use of insulin Comment: continue SS insulin, accucheck (3) Dyslipidemia Code(s): E78.5 - HYPERLIPIDEMIA, UNSPECIFIED Status: Chronic Comment: ezetemibe held. (4) HTN (hypertension) Code(s): I10 - ESSENTIAL (PRIMARY) HYPERTENSION Status: Chronic Qualifiers: Hypertension type: essential hypertension Qualified Code(s): I10 - Essential (primary) hypertension - Plan cont current plan of care, plan discussed w/ family, jiménez catheter, continue antibiotics, incentive spirometry * .
--- NOTE | 2018-10-29 20:45 | EKG ---
Test Reason : POST CABG Blood Pressure : / mmHG Vent. Rate : 076 BPM Atrial Rate : 076 BPM P-R Int : 182 ms QRS Dur : 100 ms QT Int : 484 ms P-R-T Axes : 044 -48 258 degrees QTc Int : 544 ms Normal sinus rhythm Left axis deviation Inferior infarct , age undetermined Prolonged QT Abnormal ECG When compared with ECG of 10-FEB-2014 17:10, Significant changes have occurred Confirmed by DR. Meme MCNEIL (3) on 10/29/2018 8:45:23 PM Referred By: Bolivar CULP Confirmed By:DR. Meme MCNEIL
[2018-10-29] MEDS ORDERED: Famotidine/PF 20 mg/2ml Vial SLOW IVP SCH (21:00)
[2018-10-30] MEDS: Ketorolac Tromethamine 30 MG/ML VIAL IVP SCH ×4 (01:06→17:51)
[2018-10-30 04:49] LABS: #Lymphocytes 1.3 thou/uL (1.20-3.40); #Monocytes 1.2 thou/uL (0.11-0.59); #Neutrophils 13.4 thou/uL (1.40-6.50); %Basophils 0.1 % (0.0-1.0); %Eosinophils 0.1 % (0.0-10.0); %Lymphocytes 8.3 % (21.0-51.0); %Monocytes 7.6 % (0.0-10.0); %Neutrophils 83.8 % (42.0-75.0); Hemoglobin 10.5 g/dL (14.0-18.0); Mean Corpuscular HGB CONC 32.4 g/dL (32.0-36.0); Mean Corpuscular Hemoglobin 27.8 pg (27.0-31.0); Mean Corpuscular Volume 85.9 fL (78.0-98.0); Mean Platelet Volume 7.7 fL (7.4-10.4); Platelet Count 203 thou/uL (130-400); RBC Distribution Width 13.7 % (11.5-14.5); Red Blood Cell (RBC) Count 3.76 mill/uL (4.70-6.10)
[2018-10-30 05:07] LABS: Anion Gap 10 mmol/L (10-20); BUN (Urea Nitrogen) 23 mg/dL (8.4-25.7); Calc. Creatinine Clearance 75 mL/min (70-130); Calcium 8.1 mg/dL (7.8-10.44); Carbon Dioxide 23 mmol/L (23-31); Chloride 109 mmol/L (98-107); Estimated GFR-MDRD 51; Glucose 107 mg/dL (80-115); Potassium 4.3 mmol/L (3.5-5.1); Sodium 138 mmol/L (136-145)
[2018-10-30] MEDS: Vancomycin HCl 1.5 GM in Sodium Chloride 0.9% 250 ML 300 ML IVPB SCH (06:06)
[2018-10-30] MEDS ORDERED: Ondansetron PF 4 MG/2 ML Vial IVP PRN (08:04)
[2018-10-30] MEDS ORDERED: Mag-Al 1200 mg/1200 mg/30 ML UDCUP PO PRN (08:04)
[2018-10-30] MEDS ORDERED: HYDROcodone/Acetaminophen 5/325 mg Tablet PO PRN ×2 (08:04)
[2018-10-30] MEDS ORDERED: Mineral Oil ENEMA PR PRN (08:04)
[2018-10-30] MEDS ORDERED: Fentanyl 100 MCG/2 ML VIAL SLOW IVP PRN (08:04)
[2018-10-30] MEDS ORDERED: Guaifenesin DM 100-10/5 ML UDCUP PO PRN (08:04)
[2018-10-30] MEDS ORDERED: Milk Of Magnesia 30 ML UDCUP PO PRN (08:04)
[2018-10-30] MEDS ORDERED: Bisacodyl 10 MG SUPP PR PRN (08:04)
[2018-10-30] MEDS ORDERED: diphenhydrAMINE 25 MG CAP PO PRN (08:04)
[2018-10-30] MEDS ORDERED: Nitroglycerin 0.4 MG TAB (25 Tab Bottle) SL PRN (08:04)
[2018-10-30] MEDS ORDERED: Artificial Tears 18 DROP/0.9 ML EA EYE PRN (08:04)
[2018-10-30] MEDS ORDERED: Zolpidem Tartrate 5 MG TAB PO PRN (08:04)
[2018-10-30] MEDS ORDERED: Dextrose 50% Abboject 50 ML SYRINGE SLOW IVP PRN (08:15)
[2018-10-30] MEDS ORDERED: Dextrose 5% in Water 1,000 ML IV PRN (08:15)
[2018-10-30] MEDS ORDERED: HUMULIN R 100 UNITS in Sodium Chloride 0.9% 100 ML IVPB SCH (08:15)
[2018-10-30] MEDS ORDERED: Aspirin 325 MG TAB PO SCH (09:00)
[2018-10-30] MEDS ORDERED: Magnesium 2 GM/50 ML 2 GM in Premix Bag 1 BAG IVPB SCH (09:00)
--- NOTE | 2018-10-30 09:11 | RAD ---
CHEST ONE VIEW: HISTORY: Follow up postop open heart. COMPARISON: 10/29/2018 FINDINGS: Postop midline sternotomy changes with a left chest tube and right central lines. There is some mild bilateral vascular congestion with some left pleural effusion and probable mild left lower lobe patc hy parenchymal changes. IMPRESSION: 1. Recent postop midline sternotomy changes with some left pleural effusion and minimal parenchymal changes in the left mid and lower lung zones. 2. Atherosclerosis of the aorta. 3. No significant pneumothorax. POS: [facility]
[2018-10-30] MEDS: Aspirin 325 mg Enteric Coated Tablet PO SCH (09:14)
[2018-10-30] MEDS: Famotidine 20 MG TAB PO SCH ×2 (09:14→21:18)
[2018-10-30] MEDS: Furosemide 20 MG TAB PO SCH (09:16)
[2018-10-30] MEDS: Insulin Regular 300 UNITS/3 ML VIAL SC PRN ×3 (11:04→21:29)
[2018-10-30] MEDS ORDERED: traMADol HCl 50 MG TAB PO PRN (14:57)
--- NOTE | 2018-10-30 16:55 | PDOC.PN ---
- Subjective Encounter Start Date: 10/30/18 Encounter Start Time: 16:53 Subjective: sleepy, incision site hurting + Hiccups - Objective Vital Signs & Weight: Vital Signs (12 hours) Temp Pulse Pulse BP BP Pulse Ox 10/30/18 15:23 85 84 121/64 122/67 10/30/18 12:00 98.6 F 10/30/18 08:00 98.4 F 93 L Weight Admit Weight 228 lb 2.855 oz Weight 227 lb 8.273 oz Most Recent Monitor Data Heart Rate from ECG 81 NIBP 114/62 NIBP BP-Mean 79 Respiration from ECG 22 SpO2 93 I&O: 10/29/18 10/30/18 10/31/18 06:59 06:59 06:59 Intake Total 1680 2057.0 300 Output Total 1999 1114 167 Balance -320 943.0 133 Result Diagrams: 10/30/18 04:39 10/30/18 04:39 Additional Labs: Accuchecks 10/30/18 10/30/18 10/30/18 06:59 05:21 04:24 POC Glucose 133 H 109 110 10/30/18 10/30/18 10/30/18 03:12 02:02 01:03 POC Glucose 100 112 H 112 H 10/29/18 10/29/18 10/29/18 23:38 22:40 21:21 POC Glucose 121 H 128 H 116 H 10/29/18 10/29/18 10/29/18 20:33 19:24 18:05 POC Glucose 135 H 140 H 150 H 10/29/18 17:07 POC Glucose 134 H Phys Exam - Physical Examination HEENT: PERRLA, moist MMs, sclera anicteric, TM's clear, oral pharynx no lesions , 2+ tonsils Neck: no nodes, no JVD, supple, full ROM Respiratory: no wheezing, no rales, no rhonchi Cardiovascular: RRR, no significant murmur, no rub +sternal incision site healing well Gastrointestinal: soft, non-tender, no distention, positive bowel sounds Musculoskeletal: no edema, pulses present Neurological: non-focal, normal sensation, moves all 4 limbs Psychiatric: normal affect, A&O x 3 Dx/Plan (1) CAD (coronary artery disease) Code(s): I25.10 - ATHSCL HEART DISEASE OF [place] CORONARY ARTERY W/O ANG PCTRS Status: Acute Qualifiers: Coronary Disease-Associated Artery/Lesion type: [place] artery [place] vs. transplanted heart: [place] heart Associated angina: without angina Qualified Code(s): I25.10 - Atherosclerotic heart disease of [place] coronary artery without angina pectoris Comment: S/P cabg on Monday, CONTINUE Aspirin (2) DM type 2 (diabetes mellitus, type 2) Status: Chronic Qualifiers: Diabetes mellitus skilled nursing insulin use: with exterminator use Diabetes mellitus complication status: with unspecified complications Qualified Code(s) : E11.8 - Type 2 diabetes mellitus with unspecified complications; Z79.4 - continuous churn buttermaker (current) use of insulin Comment: continue SS insulin, accucheck (3) Dyslipidemia Code(s): E78.5 - HYPERLIPIDEMIA, UNSPECIFIED Status: Chronic Comment: ezetemibe held. (4) HTN (hypertension) Code(s): I10 - ESSENTIAL (PRIMARY) HYPERTENSION Status: Chronic Qualifiers: Hypertension type: essential hypertension Qualified Code(s): I10 - Essential (primary) hypertension - Plan cont current plan of care, PT/OT * .
--- NOTE | 2018-10-30 17:13 | PDOC.CTH ---
Cardiology Progress Note - Objective Vital Signs Temp Pulse Pulse BP BP Pulse Ox 10/30/18 15:23 85 84 121/64 122/67 10/30/18 12:00 98.6 F 10/30/18 08:00 98.4 F 93 L Admit Weight 228 lb 2.855 oz Weight 227 lb 8.273 oz 10/29/18 10/30/18 10/31/18 06:59 06:59 06:59 Intake Total 1680 2057.0 300 Output Total 1999 1114 167 Balance -320 943.0 133 - Labs Result Diagrams: 10/30/18 04:39 10/30/18 04:39 - Assessment/Plan 1. ICMO 2. CAD 3. IDDM 4. HTN 5. Recent episode of sepsis from cholecystitis and s/p tube placement 6. Mixed HLD For CABG tomorrow. No changes on my part. (1) CAD (coronary artery disease) Code(s): I25.10 - ATHSCL HEART DISEASE OF [place] CORONARY ARTERY W/O ANG PCTRS Status: Acute Qualifiers: Coronary Disease-Associated Artery/Lesion type: [place] artery [place] vs. transplanted heart: [place] heart Associated angina: without angina Qualified Code(s): I25.10 - Atherosclerotic heart disease of [place] coronary artery without angina pectoris Comment: S/P cabg on Monday, CONTINUE Aspirin (2) DM type 2 (diabetes mellitus, type 2) Status: Chronic Qualifiers: Diabetes mellitus moth exterminator insulin use: with jail use Diabetes mellitus complication status: with unspecified complications Qualified Code(s) : E11.8 - Type 2 diabetes mellitus with unspecified complications; Z79.4 - manager terminal (current) use of insulin Comment: continue SS insulin, accucheck (3) Dyslipidemia Code(s): E78.5 - HYPERLIPIDEMIA, UNSPECIFIED Status: Chronic Comment: ezetemibe held. (4) HTN (hypertension) Code(s): I10 - ESSENTIAL (PRIMARY) HYPERTENSION Status: Chronic Qualifiers: Hypertension type: essential hypertension Qualified Code(s): I10 - Essential (primary) hypertension - Plan cont current plan of care, PT/OT
[2018-10-30] MEDS: Bisacodyl 5 MG TAB PO PRN (21:18)
[2018-10-31] MEDS: Ketorolac Tromethamine 30 MG/ML VIAL IVP SCH ×2 (00:25→06:13)
[2018-10-31] MEDS: Insulin Regular 300 UNITS/3 ML VIAL SC PRN ×4 (06:32→20:57)
[2018-10-31] MEDS ORDERED: metFORMIN 500 MG TAB PO SCH (08:00)
--- NOTE | 2018-10-31 08:06 | PDOC.PN ---
- Subjective Encounter Start Date: 10/31/18 Encounter Start Time: 08:05 Subjective: Seen and examined - Objective Vital Signs & Weight: Vital Signs (12 hours) Temp 10/31/18 04:00 98.8 F 10/31/18 00:00 98.8 F Weight Admit Weight 228 lb 2.855 oz Weight 235 lb 0.204 oz Most Recent Monitor Data Heart Rate from ECG 79 NIBP 115/62 NIBP BP-Mean 79 Respiration from ECG 18 SpO2 93 I&O: 10/30/18 10/31/18 11/01/18 06:59 06:59 06:59 Intake Total 2057.0 750 Output Total 1114 697 30 Balance 943.0 53 -30 Result Diagrams: 10/30/18 04:39 10/30/18 04:39 Additional Labs: Accuchecks 10/31/18 10/30/18 10/30/18 06:30 21:25 17:13 POC Glucose 142 H 163 H 212 H 10/30/18 11:02 POC Glucose 237 H Phys Exam - Physical Examination Constitutional: NAD HEENT: PERRLA, moist MMs, sclera anicteric, TM's clear Neck: no nodes, no JVD, supple, full ROM Respiratory: no wheezing, no rales, no rhonchi, clear to auscultation bilateral Cardiovascular: RRR, no significant murmur, no rub Gastrointestinal: soft, non-tender, no distention, positive bowel sounds Musculoskeletal: no edema, pulses present Dx/Plan (1) CAD (coronary artery disease) Code(s): I25.10 - ATHSCL HEART DISEASE OF [place] CORONARY ARTERY W/O ANG PCTRS Status: Acute Qualifiers: Coronary Disease-Associated Artery/Lesion type: [place] artery [place] vs. transplanted heart: [place] heart Associated angina: without angina Qualified Code(s): I25.10 - Atherosclerotic heart disease of [place] coronary artery without angina pectoris Comment: S/P cabg on Monday, CONTINUE Aspirin (2) Chronic cholecystitis Code(s): K81.1 - CHRONIC CHOLECYSTITIS Status: Chronic Comment: had cholecystitis with sepsis 09/05/2018 s/p percut cholecystostomy tube (3) DM type 2 (diabetes mellitus, type 2) Status: Chronic Qualifiers: Diabetes mellitus fdc insulin use: with local intermodal truck driver use Diabetes mellitus complication status: with unspecified complications Qualified Code(s) : E11.8 - Type 2 diabetes mellitus with unspecified complications; Z79.4 - joint terminal attack controller (current) use of insulin Comment: continue SS insulin, accucheck (4) Dyslipidemia Code(s): E78.5 - HYPERLIPIDEMIA, UNSPECIFIED Status: Chronic Comment: ezetemibe held. (5) HTN (hypertension) Code(s): I10 - ESSENTIAL (PRIMARY) HYPERTENSION Status: Chronic Qualifiers: Hypertension type: essential hypertension Qualified Code(s): I10 - Essential (primary) hypertension - Plan PT/OT, psychiatric social worker supervisor Pain management -: Dispo planning * .
[2018-10-31] MEDS: metFORMIN 850 MG TAB PO SCH ×2 (08:56→17:09)
[2018-10-31] MEDS: Pioglitazone HCl 15 MG TAB PO SCH (08:56)
[2018-10-31] MEDS: Famotidine 20 MG TAB PO SCH ×2 (08:56→20:41)
[2018-10-31] MEDS: Aspirin 325 mg Enteric Coated Tablet PO SCH (08:57)
[2018-10-31] MEDS: Potassium Chloride 10 MEQ TAB PO SCH (08:57)
[2018-10-31] MEDS: Polyethylene Glycol 3350 17 GM Packet PO SCH (08:58)
[2018-10-31] MEDS: Furosemide 20 MG TAB PO SCH (09:02)
[2018-10-31] MEDS: Insulin Glargine 15 UNITS in Pre-Filled Syringe 1 EACH SC SCH (09:16)
[2018-10-31] MEDS: Bisacodyl 5 MG TAB PO PRN (16:19)
--- NOTE | 2018-10-31 16:53 | PRG ---
DATE OF SERVICE: 10/30/2018 TIME: 1500 hours. SUBJECTIVE: Mr. Aponte is status post CABG done on 10/29. He is up and walking with cardiac rehab at this time. He has complaints of sternal incisional pain, but denies any chest pain, shortness of breath, or palpitations. He does have mild dizziness with ambulation. He also reports feeling a little bit weak. OBJECTIVE: VITAL SIGNS: Stable. NEUROLOGIC: The patient is alert, awake, and oriented x3. CHEST: Clear to auscultation bilaterally. CARDIOVASCULAR: Regular rate and rhythm. Normal S1 and S2. ABDOMEN: Soft, nontender to palpation, and nondistended. EXTREMITIES: Show mild edema bilaterally. IMPRESSION: 1. Three-vessel coronary artery disease. 2. Ischemic cardiomyopathy. 3. Status post recent coronary artery bypass grafting x4. 4. Diabetes mellitus, type 2. PLAN: At this time, the patient is stable. We will continue cardiac rehab and slowly resume his at-home medications. His diabetes has been somewhat poorly controlled in the last few weeks. He is on sliding scale insulin. Otherwise, no changes today. Job ID: [id number]
[2018-10-31] MEDS: Acetaminophen 325 MG TAB PO PRN (20:56)
[2018-11-01] MEDS ORDERED: Clopidogrel Bisulfate 75 MG TAB ONE (08:07)
[2018-11-01] MEDS: Potassium Chloride 10 MEQ TAB PO SCH (08:41)
[2018-11-01] MEDS: Aspirin 325 mg Enteric Coated Tablet PO SCH (08:42)
[2018-11-01] MEDS: metFORMIN 850 MG TAB PO SCH ×2 (08:42→17:01)
[2018-11-01] MEDS: Famotidine 20 MG TAB PO SCH ×2 (08:42→20:05)
[2018-11-01] MEDS: Pioglitazone HCl 15 MG TAB PO SCH (08:42)
[2018-11-01] MEDS: Insulin Glargine 15 UNITS in Pre-Filled Syringe 1 EACH SC SCH (08:43)
[2018-11-01] MEDS: Polyethylene Glycol 3350 17 GM Packet PO SCH (08:43)
[2018-11-01] MEDS: Furosemide 20 MG TAB PO SCH (08:46)
--- NOTE | 2018-11-01 12:00 | PDOC.CTH ---
Cardiology Progress Note - Subjective He is doing well. Passing gas but no BM's yet, does not feel boated and had laxative yesterday. He has refused Lasix as he has a bad reaction every time he has taken it in the past. - Objective Vital Signs Temp Pulse Ox 11/01/18 08:00 97.8 F 96 11/01/18 05:00 98.2 F Admit Weight 228 lb 2.855 oz Weight 236 lb 5.369 oz 10/31/18 11/01/18 11/02/18 06:59 06:59 06:59 Intake Total 750 640 460 Output Total 697 970 0 Balance 53 -330 460 - Physical Examination General/Neuro: alert & oriented x3, NAD Neck: no JVD present Lungs: CTA, unlabored respirations Heart: RRR Abdomen: NT/ND Extremities: other: (no edema) - Telemetry Telemetry Rhythm: NSR - Labs Result Diagrams: 10/30/18 04:39 10/30/18 04:39 - Assessment/Plan 1. Ischemic CM 2. Multivessel CAD. 3. S/P CABG x 4 4. Type 2 DM. PLAN: - Continue Aspirin. - He has been intolerant to statins in the past, Will consider Praluent/Repatha as outpatient if LDL not at goal. - Continue BB, will increase today to home dose for better BP control. - Will check creatinine as last check it had increased. - Will check Hgb as last check it was coming down, probably from post op. - If creatinine stable will start low dose ACEI. - Increase PT as tolerated. - Will restart his home jardiance. - He does not want to use any lasix. Currently he seems close to euvolemic. If we need to get fluid out will try Bumex and he agrees to this.
--- NOTE | 2018-11-01 14:19 | PRG ---
DATE OF SERVICE: 11/01/2018 SUBJECTIVE: The patient is seen and examined at the bedside. He is somewhat exhausted. He just took a bath. His appetite is fair. He did not have any bowel movement. OBJECTIVE: VITAL SIGNS: Blood pressure is 167/91, pulse is 73, and respiratory rate is 21. HEENT: His head is atraumatic and normocephalic. Eyes are PERRLA. Sclerae are nonicteric. Oral mucosa is moist. NECK: Supple. CHEST: The incision in the midline looks good. He has dressing in the lower part of the chest in the midline. LUNGS: Breath sounds are diminished at both bases. HEART: S1 and S2 normal. No S3. No S4. ABDOMEN: Soft and nontender. Bowel sounds are present. No organomegaly. EXTREMITIES: No clubbing, cyanosis, or edema. NEUROLOGIC: He is alert and oriented x4. There is no any motor or sensory deficits present. Cranial nerves are intact. LABORATORY DATA: Glycemia is ranging from 106 to 163. IMPRESSION: 1. Coronary artery disease, status post coronary artery bypass grafting. 2. Chronic cholecystitis. 3. Diabetes mellitus type 2, controlled. 4. Dyslipidemia. 5. Hypertension. PLAN: To continue PT and OT. Continue post CABG protocol. Continue aspirin 325 mg once a day. Continue Pepcid 20 mg twice a day. Continue furosemide 40 mg once a day. Continue metformin 850 mg twice a day. Continue metoprolol succinate 25 mg twice a day. Continue pioglitazone 50 mg once a day. Continue potassium chloride 10 mEq once a day. Continue p.r.n.'s for other purposes. Continue Accu-Cheks a.c. and at bedtime and coverage with sliding scale. Job ID: [id number]
[2018-11-01] MEDS: Amiodarone 450 MG, Admixture Fee 1 EACH in Dextrose 5% in Water 250 ML IVPB SCH (15:31)
[2018-11-01] MEDS: Insulin Regular 300 UNITS/3 ML VIAL SC PRN ×2 (17:08→21:15)
[2018-11-01] MEDS: Acetaminophen 325 MG TAB PO PRN (20:08)
[2018-11-01] MEDS: Bisacodyl 5 MG TAB PO PRN (20:08)
--- NOTE | 2018-11-01 20:34 | EKG ---
Test Reason : Blood Pressure : / mmHG Vent. Rate : 124 BPM Atrial Rate : 138 BPM P-R Int : 000 ms QRS Dur : 090 ms QT Int : 336 ms P-R-T Axes : 000 -33 141 degrees QTc Int : 482 ms Atrial fibrillation with rapid ventricular response Left axis deviation possible inferior NV unknown age Abnormal ECG When compared with ECG of 29-OCT-2018 12:15, Atrial fibrillation has replaced Sinus rhythm Vent. rate has increased BY 48 BPM Non-specific change in ST segment in Inferior leads T wave inversion less evident in Anterior leads T wave inversion more evident in Lateral leads Confirmed by DR. Meme MCNEIL ([id number]) on 11/01/2018 8:33:54 PM Referred By: PRIYA Confirmed By:DR. Meme MCNEIL
[2018-11-02] MEDS: Amiodarone 450 MG, Admixture Fee 1 EACH in Dextrose 5% in Water 250 ML IVPB SCH (00:20)
[2018-11-02 04:32] LABS: #Eosinphils 0.3 thou/uL (0.0-0.7); #Lymphocytes 1.4 thou/uL (1.20-3.40); #Monocytes 1.2 thou/uL (0.11-0.59); #Neutrophils 9.4 thou/uL (1.40-6.50); %Basophils 0.4 % (0.0-1.0); %Eosinophils 2.3 % (0.0-10.0); %Lymphocytes 11.6 % (21.0-51.0); %Monocytes 9.8 % (0.0-10.0); %Neutrophils 75.9 % (42.0-75.0); Hemoglobin 9.3 g/dL (14.0-18.0); Mean Corpuscular HGB CONC 31.7 g/dL (32.0-36.0); Mean Corpuscular Hemoglobin 27.5 pg (27.0-31.0); Mean Platelet Volume 7.4 fL (7.4-10.4); Platelet Count 216 thou/uL (130-400); RBC Distribution Width 13.8 % (11.5-14.5); Red Blood Cell (RBC) Count 3.38 mill/uL (4.70-6.10); White Blood Cell (WBC) Count 12.4 thou/uL (4.8-10.8)
[2018-11-02 04:52] LABS: Anion Gap 12 mmol/L (10-20); BUN (Urea Nitrogen) 25 mg/dL (8.4-25.7); Calc. Creatinine Clearance 93 mL/min (70-130); Calcium 8.7 mg/dL (7.8-10.44); Carbon Dioxide 24 mmol/L (23-31); Chloride 103 mmol/L (98-107); Estimated GFR-MDRD 60; Glucose 120 mg/dL (80-115); Potassium 4.1 mmol/L (3.5-5.1); Sodium 135 mmol/L (136-145)
[2018-11-02] MEDS: metFORMIN 850 MG TAB PO SCH ×2 (07:50→17:47)
[2018-11-02] MEDS: Potassium Chloride 10 MEQ TAB PO SCH (07:50)
[2018-11-02] MEDS: Famotidine 20 MG TAB PO SCH ×2 (08:19→21:48)
[2018-11-02] MEDS: Aspirin 325 mg Enteric Coated Tablet PO SCH (08:19)
[2018-11-02] MEDS: JARDIANCE 10 MG PO SCH (08:20)
[2018-11-02] MEDS: Polyethylene Glycol 3350 17 GM Packet PO SCH (08:25)
[2018-11-02] MEDS: Pioglitazone HCl 15 MG TAB PO SCH (08:25)
[2018-11-02] MEDS: Furosemide 20 MG TAB PO SCH (08:26)
[2018-11-02] MEDS: Insulin Glargine 15 UNITS in Pre-Filled Syringe 1 EACH SC SCH (08:26)
[2018-11-02] MEDS ORDERED: Clopidogrel Bisulfate 75 MG TAB ONE (08:51)
[2018-11-02] MEDS: Insulin Regular 300 UNITS/3 ML VIAL SC PRN ×2 (11:43→21:58)
[2018-11-02] MEDS ORDERED: Amiodarone 200 MG TAB PO SCH (13:15)
[2018-11-02] MEDS ORDERED: Lisinopril 10 MG TAB PO SCH (13:15)
[2018-11-02 13:16] VITALS: BMI 30.3
--- NOTE | 2018-11-02 13:44 | PRG ---
DATE OF SERVICE: 11/02/2018 SUBJECTIVE: The patient is seen and examined at the bedside. He is sitting in the chair during my visit. His is present in the room. OBJECTIVE: VITAL SIGNS: Blood pressure is 178/93, pulse is 74, respiratory rate is 26, temperature is 98.4. HEAD: Atraumatic and normocephalic. Eyes are PERRLA. Sclerae are nonicteric. Oral mucosa is moist. NECK: Supple. LUNGS: Breath sounds diminished slightly at both bases, mostly on the right side than on the left side. No wheezing. HEART: S1, S2 normal. No S3. No S4. There is dressing in the lower part of the sternum, but incision which is in midline upper chest looks good. It is healing properly. ABDOMEN: Soft. Slightly obese, nontender. EXTREMITIES: No clubbing, cyanosis, or edema. NEUROLOGIC: He is alert and oriented x4. There is no any motor or sensory deficits present. Cranial nerves are intact. LABORATORY DATA: Labs showed white count of 12.4, hemoglobin 9.3, hematocrit 29.4, platelet count is 216,000. Sodium of 135. The rest of electrolytes within normal limits. Creatinine 1.22, BUN 25. Glycemia is ranging from 133 to 171, calcium is 8.7. IMPRESSION: 1. Coronary artery disease, status post coronary artery bypass grafting. 2. Atrial fibrillation with rapid ventricular response. The patient was placed on amiodarone drip and he converted to normal sinus rhythm. 3. Diabetes mellitus type 2, controlled. 4. Dyslipidemia. 5. Hypertension. 6. Postoperative anemia. PLAN: Continue his current regiment. He is still on amiodarone drip, it will be stopped and he will be switched to amiodarone orally. We will continue the rest of his regimen. We will continue Accu-Cheks a.c. and at bedtime and coverage with sliding scale insulin. Job ID: [id number]
--- NOTE | 2018-11-02 16:58 | PDOC.CTH ---
Cardiology Progress Note - Subjective Doing better. He had a normal BM today. Working with PT. he had a run of afib overnight started on amiodarone and converted to sinus at 4am. - Objective Vital Signs Temp Pulse Pulse Pulse Resp BP BP 11/02/18 16:34 11/02/18 16:10 98.1 F 70 17 11/02/18 13:16 73 73 168/91 H 11/02/18 13:11 178/93 H 11/02/18 12:00 98.7 F 11/02/18 09:45 88 81 11/02/18 08:00 98.4 F 11/02/18 07:56 BP BP Pulse Ox 11/02/18 16:34 97 11/02/18 16:10 135/62 97 11/02/18 13:16 155/88 H 11/02/18 13:11 11/02/18 12:00 11/02/18 09:45 174/95 H 11/02/18 08:00 11/02/18 07:56 98 Admit Weight 228 lb Weight 236 lb 5.369 oz 11/01/18 11/02/18 11/03/18 06:59 06:59 06:59 Intake Total 640 2488 709 Output Total 970 2800 1580 Balance -326 -312 -281 - Physical Examination General/Neuro: alert & oriented x3, NAD Neck: no JVD present Lungs: CTA, unlabored respirations Heart: RRR Abdomen: NT/ND Extremities: + edema B (1+) - Telemetry Telemetry Rhythm: NSR - Labs Result Diagrams: 11/02/18 04:15 11/02/18 04:15 - Assessment/Plan 1. Ischemic CM 2. Multivessel CAD. 3. S/P CABG x 4 4. Type 2 DM. 5. Post op Afib. PLAN: - Continue Aspirin. - He has been intolerant to statins in the past, Will consider Praluent/Repatha as outpatient if LDL not at goal. - Continue BB. - Will switch amiodarone drip to PO. - Creatinine back to baseline. - Will start low dose ACEI nfor better BP control up titrate as tolerated. - Increase PT as tolerated. - He does not want to use any lasix. Currently he seems close to euvolemic. If we need to get fluid out will try Bumex and he agrees to this. -
[2018-11-02] MEDS: Amiodarone 200 MG TAB PO SCH (21:49)
[2018-11-02] MEDS: Acetaminophen 325 MG TAB PO PRN (22:06)
[2018-11-03] MEDS: metFORMIN 850 MG TAB PO SCH (07:45)
[2018-11-03] MEDS: Potassium Chloride 10 MEQ TAB PO SCH (07:45)
[2018-11-03] MEDS: Famotidine 20 MG TAB PO SCH (08:55)
[2018-11-03] MEDS: Amiodarone 200 MG TAB PO SCH (08:55)
[2018-11-03] MEDS: Aspirin 325 mg Enteric Coated Tablet PO SCH (08:56)
[2018-11-03] MEDS: Pioglitazone HCl 15 MG TAB PO SCH (08:56)
[2018-11-03] MEDS: Insulin Glargine 15 UNITS in Pre-Filled Syringe 1 EACH SC SCH (08:57)
[2018-11-03] MEDS: Polyethylene Glycol 3350 17 GM Packet PO SCH (08:57)
[2018-11-03] MEDS ORDERED: Lisinopril 10 MG TAB PO SCH (09:00)
[2018-11-03] MEDS: JARDIANCE 10 MG PO SCH (09:01)
[2018-11-03 11:24] VITALS: TEMP 98
[2018-11-03 11:31] VITALS: BP 141/70
[2018-11-04] MEDS ORDERED: Ezetimibe 10 MG TAB PO SCH (09:00)
--- NOTE | 2018-11-05 11:50 | PQF ---
MOLLY MORRISDOUG MENDES [id number] CLINICAL DOCUMENTATION CLARIFICATION FORM: POST DISCHARGE DATE: 11/05/2018 ATTN: Dr. Mariscal Please exercise your independent, professional judgment in responding to the clarification form. Clinical indicators are provided on the bottom of this form for your review Please check appropriate box(s): [ ] Postoperative atrial fibrillation is a postoperative complication related to current surgery [ ] Postoperative atrial fibrillation is not a postoperative complication related to current surgery [ ] Other diagnosis (please specify) [ ] Unable to determine In addition, please specify: Present on Admission (POA): [ ] Yes [ ] No [ ] Unable to determine CLINICAL INDICATORS - SIGNS / SYMPTOMS / LABS Per 11/02 PN (Davey): He had a run of afib overnight. Started on amiodarone and converted to sinus at 4 am. Assessment/ Plan: Post op Afib. RISK FACTORS Status post CABG x 4 on 10/29/18. TREATMENT: Per 11/02 PN (Davey): Amiodarone drip. Switch to po. (This form is maintained as a part of the permanent medical record) 2014 [employer] All Rights Reserved Emily [email or web address] [phone] [email or web address]
--- NOTE | 2018-11-05 14:45 | DIS ---
DATE OF ADMISSION: 10/25/2018 DATE OF DISCHARGE: 11/03/2018 DIAGNOSES: 1. Coronary artery disease. 2. Hypertension. 3. Diabetes mellitus. 4. Dyslipidemia. 5. History of acute cholecystitis, status post percutaneous drainage of his gallbladder. PROCEDURES: 1. Cardiac catheterization. 2. Coronary artery bypass grafting x4-left internal mammary to left anterior descending, saphenous vein graft to diagonal, ramus, and distal right coronary. DESCRIPTION OF HOSPITAL STAY: Mr. Aponte was electively admitted for cardiac catheterization. He underwent cardiac catheterization revealing severe three-vessel disease. He was seen by General Surgery here, who cleared him for bypass. He underwent bypass on 10/29. Postoperatively, he did well. He had no rhythm issues. At the time of discharge, he was ambulatory, tolerating regular diet, having good bowel and bladder function. Incisions are clean and dry without evidence of infection. DISCHARGE MEDICATIONS: 1. Aspirin 81 mg daily. 2. Jardiance 10 mg daily. 3. Ezetimibe 10 mg at bedtime. 4. Lasix 20 mg daily. 5. Levemir per his home routine. 6. Lisinopril 20 mg daily. 7. Toprol-XL 50 mg daily. 8. Pioglitazone/metformin 15/ b.i.d. FOLLOWUP: Follow up is with me in [address] Mariscal in 1 month. Job ID: [id number]
== END 2018-11-03 13:30 | disposition home or self-care (01) | DRG 236 ==
LOC: 2SW 13:32 → OBSVTOIN 10-25 16:57 → 2NO 10-26 15:44 → CCU 10-29 07:13 → 2NO 11-02 16:14
PROVIDERS: ADMIT Internal Medicine Cardiovascular Disease; ATTEND Internal Medicine Cardiovascular Disease
PROC: 02100Z9 Bypass Coronary Artery, One Artery from Left Internal Mammary, Open Approach (ICD-10-PCS; principal; 2018-10-29)
PROC: 021209W Bypass Coronary Artery, Three Arteries from Aorta with Autologous Venous Tissue, Open Approach (ICD-10-PCS; 2018-10-29)
PROC: 06BQ4ZZ Excision of Left Saphenous Vein, Percutaneous Endoscopic Approach (ICD-10-PCS; 2018-10-29)
PROC: 06BP0ZZ Excision of Right Saphenous Vein, Open Approach (ICD-10-PCS; 2018-10-29)
PROC: 5A1221Z Performance of Cardiac Output, Continuous (ICD-10-PCS; 2018-10-29)
DX: I25.10 Atherosclerotic heart disease of native coronary artery without angina pectoris (principal); I48.91 Unspecified atrial fibrillation; I10 Essential (primary) hypertension; E11.9 Type 2 diabetes mellitus without complications; E78.2 Mixed hyperlipidemia; I25.5 Ischemic cardiomyopathy; K81.1 Chronic cholecystitis; I25.2 Old myocardial infarction; Z87.891 Personal history of nicotine dependence; Z88.5 Allergy status to narcotic agent; Z88.8 Allergy status to other drugs, medicaments and biological substances; Z79.82 Long term (current) use of aspirin; Z79.4 Long term (current) use of insulin; Z79.899 Other long term (current) drug therapy; Z95.5 Presence of coronary angioplasty implant and graft
CPT/HCPCS: 36415; 36416; 36430; 71045; 74150; 76942; 80048; 80053; 82805; 82947; 85025; 85610; 85730; 86850; 86900; 86901; 93005; 93010; 93458; 93798; 94760; C1769; J0282; J0670; J1100; J1642; J1644; J1815; J1825; J1885; J1956; J2001; J2250; J2405; J2440; J2704; J2720; J3010; J3370; J3475; J3480; J7050; J7070; P9045; Q0163; Q4186; Q9967; S0017; S0028

== ENCOUNTER 2018-12-19 11:41 | Day surgery (SDC) | payer BC ==
[2018-12-14 09:29] VITALS: BMI 29.7
[~2018-12-19 11:41] MED LIST changes: +Glycopyrrolate 0.2 MG/ML 5 ML SYRINGE ONE; -Iopamidol 370 76% 100 ML VIAL ONE; +Lidocaine 1% PF 5 ML VIAL ONE; +PHENYLEPHRINE-NS 100 MCG/ML 10 ML SYRINGE ONE; +PROPOFOL 200 MG/20 ML VIAL ONE; +Rocuronium Bromide 10 MG/ML (10ML VIAL) ONE
[2018-12-19] MEDS ORDERED: Midazolam HCl 2 mg/2 ml Vial ONE ×2 (12:42→13:07)
[2018-12-19] MEDS ORDERED: Bupivacaine/Epinephrine 0.25% 30 ML VIAL ONE (12:58)
[2018-12-19] MEDS ORDERED: Fentanyl 100 MCG/2 ML VIAL ONE ×3 (13:07→16:21)
[2018-12-19] MEDS ORDERED: hydrALAZINE 20 MG/ML VIAL ONE (15:34)
--- NOTE | 2018-12-19 16:20 | OP ---
DATE OF PROCEDURE: 12/19/2018 PREOPERATIVE DIAGNOSIS: Chronic cholecystitis, status post cholecystostomy tube. POSTOPERATIVE DIAGNOSIS: Chronic cholecystitis, status post cholecystostomy tube. PROCEDURE PERFORMED: Laparoscopic cholecystectomy with placement of temporary intraabdominal drain. ANESTHESIA: General. ESTIMATED BLOOD LOSS: Minimal. COMPLICATIONS: None. SPECIMENS: None. FINDINGS: Severe chronic cholecystitis. DESCRIPTION OF PROCEDURE: The patient was taken to the operating room and laid supine on the operating room table. After general anesthetic was obtained, the abdomen was prepped and draped in a sterile fashion. A straight incision was made above the umbilicus. Cautery was dissected down to and score the fascia. Abdominal cavity was entered bluntly using a Analia clamp. Holding stitch of PDS was placed on each side of the fascia. Herbert trocar was placed. High-flow pneumoperitoneum was obtained. Upper midline 5 mm port and two right upper quadrant 5 mm ports were placed in direct visualization. The gallbladder was retracted from the gallbladder fossa. The peritoneum was opened anteriorly and posteriorly. The critical view triangle was seen showing only the cystic duct and cystic artery branching medial to lateral and no other branching structures. There were severe local inflammatory changes. The critical view triangle was seen showing only the cystic duct and cystic artery branching medial to lateral and no other branching structures. Two clips were placed proximally, one distally in the cystic duct, cut using laparoscopic scissors. Cystic artery was taken in the same way. Cautery was used to dissect the gallbladder out of the gallbladder fossa. Gallbladder was placed in an EndoCatch bag and brought out through the Manning. All port sites were infiltrated using local anesthetic. The right upper quadrant was irrigated. Meticulous hemostasis was obtained in the liver bed. A 19 round drain was brought out through a right upper quadrant incision, left in the liver bed, sewn in place using silk. All port sites were infiltrated using local anesthetic. All ports were removed under camera visualization. Pneumoperitoneum was let down. PDS was used to close the fascial defect above the umbilicus. All incisions were irrigated and closed using 4-0 Monocryl and Dermabond. The patient was sent to Recovery in stable condition. All instrument counts, needle counts, and lap counts were correct. Job ID: [id number]
[2018-12-19] MEDS ORDERED: Ketorolac Tromethamine 30 MG/ML VIAL ONE (17:08)
[2018-12-19] MEDS ORDERED: traMADol HCl 50 MG TAB ONE (18:13)
[2018-12-19] MEDS ORDERED: Ondansetron ODT 4 MG TAB ONE (19:16)
== END 2018-12-19 14:35 | disposition home or self-care (01) ==
LOC: SDC 11:41
PROVIDERS: ATTEND Surgery
PROC: 0FT44ZZ Resection of Gallbladder, Percutaneous Endoscopic Approach (ICD-10-PCS; principal; 2018-12-19)
DX: K80.12 Calculus of gallbladder with acute and chronic cholecystitis without obstruction (principal); E78.00 Pure hypercholesterolemia, unspecified; E11.9 Type 2 diabetes mellitus without complications; I11.9 Hypertensive heart disease without heart failure; Z87.891 Personal history of nicotine dependence; Z79.4 Long term (current) use of insulin; Z79.899 Other long term (current) drug therapy; Z88.5 Allergy status to narcotic agent; Z88.8 Allergy status to other drugs, medicaments and biological substances; Z91.041 Radiographic dye allergy status
CPT/HCPCS: 36416; 88304; J0360; J0690; J1885; J2250; J3010; Q0162

== ENCOUNTER 2019-07-23 07:26 | Outpatient (CLI) | payer BC ==
--- NOTE | 2019-07-23 08:56 | ULT ---
CLINICAL HISTORY: Hypertension. STUDY: Renal ultrasound and renal artery ultrasound COMPARISON: None. TECHNIQUE: Multiplanar grayscale and color Doppler images were obtained in a renal ultrasound. Spectr al analysis of the Doppler waveforms of the aorta and renal arteries were performed. FINDINGS: Right kidney: Echogenicity: Normal. Masses/cysts: None. Hydronephrosis: None. Calcifications: None. Length: 11.9 cm Left kidney: Echogenicity: Normal. Masses/cysts: None. Hydronephrosis: None. Calcifications: None. Length: 13.3 cm Limited visualization of the urinary bladder is unremarkable. Peak systolic velocity in the aorta: 106 cm/s Peak systolic velocity in the right renal artery: 101 cm/s. Right renal artery to aortic ratio: 1.0 Peak systolic velocity in the left renal artery: 121 cm/s. Left renal artery to aortic ratio: 1.1 IMPRESSION: 1. Unremarkable renal ultrasound 2. No evidence of renal artery stenosis
== END 2019-07-23 07:27 | disposition home or self-care (01) ==
LOC: ULT 07:26
PROVIDERS: ATTEND Internal Medicine Nephrology
DX: I12.9 Hypertensive chronic kidney disease with stage 1 through stage 4 chronic kidney disease, or unspecified chronic kidney disease (principal); N18.3 Chronic kidney disease, stage 3 (moderate)
CPT/HCPCS: 76770; 93975

== ENCOUNTER 2021-06-21 14:59 | Inpatient (IN) | payer MEDICARE, BC ==
[2021-06-21 16:11] LABS: Hemoglobin 13.6 g/dL (14.0-18.0); Mean Corpuscular HGB CONC 33.1 g/dL (32.0-36.0); Mean Corpuscular Hemoglobin 27.7 pg (27.0-31.0); Mean Corpuscular Volume 83.7 fL (78.0-98.0); Mean Platelet Volume 8.2 fL (7.4-10.4); Platelet Count 186 thou/uL (130-400); RBC Distribution Width 13.9 % (11.5-14.5); Red Blood Cell (RBC) Count 4.89 mill/uL (4.70-6.10); White Blood Cell (WBC) Count 21.5 thou/uL (4.8-10.8)
[2021-06-21 16:33] LABS: Band 9 % (5-11); Eosinophils 1 % (0-10); Lymphocytes 6 % (21-51); MDiff Complete? YES; Monocytes 5 % (0-10); Neutrophil 77 % (42-75); Platelet Morphology Comment Appears Adequate; RBC Morphology Normal; Reactive Lymphocytes 2 % (0-10)
[2021-06-21 16:33] LABS: ALT (SGPT) 7 U/L (8-55); AST (SGOT) 18 U/L (5-34); Albumin 3.2 g/dL (3.4-4.8); Alkaline Phosphatase 88 U/L (40-110); Anion Gap 14 mmol/L (10-20); BUN (Urea Nitrogen) 33 mg/dL (8.4-25.7); Bilirubin, Total 0.5 mg/dL (0.2-1.2); Calc. Creatinine Clearance 0 mL/min (70-130); Calcium 8.3 mg/dL (7.8-10.44); Carbon Dioxide 24 mmol/L (23-31); Chloride 100 mmol/L (98-107); Globulin 2.9 g/dL (2.4-3.5); Glucose 183 mg/dL (80-115); Potassium 4.4 mmol/L (3.5-5.1); Protein, Total 6.1 g/dL (5.8-8.1); Sodium 134 mmol/L (136-145)
[2021-06-21] MEDS ORDERED: Cefepime 2 GM VIAL ONE (17:47)
[2021-06-21] MEDS ORDERED: Acetaminophen 500 MG TAB ONE (17:47)
[2021-06-21] MEDS ORDERED: VANCOMYCIN 2 GRAM/400 ML BAG 2 GM in Premix Bag 1 BAG IVPB SCH (18:15)
[2021-06-21] MEDS: Acetaminophen 325 MG TAB PO PRN (23:31)
[2021-06-22 00:16] VITALS: BMI 33.6
[2021-06-22] MEDS ORDERED: Ondansetron PF 4 MG/2 ML Vial IVP PRN (04:46)
[2021-06-22] MEDS ORDERED: Dextrose 5% in Water 1,000 ML IV PRN (04:47)
[2021-06-22] MEDS ORDERED: Dextrose 50% Abboject 50 ML SYRINGE SLOW IVP PRN (04:47)
[2021-06-22] MEDS: Acetaminophen 325 MG TAB PO PRN ×3 (04:50→20:24)
[2021-06-22] MEDS ORDERED: Sodium Chloride 0.9% 1,000 ML IV SCH (05:45)
[2021-06-22] MEDS ORDERED: Meropenem 1 GM in Sodium Chloride 0.9% 100 ML IVPB SCH (06:30)
[2021-06-22] MEDS: HumaLOG 300 UNITS/3 ML VIAL SC PRN ×3 (07:28→20:31)
[2021-06-22 07:38] LABS: #Eosinphils 0.2 thou/uL (0.0-0.7); #Lymphocytes 0.8 thou/uL (1.20-3.40); #Monocytes 1.3 thou/uL (0.11-0.59); #Neutrophils 15.9 thou/uL (1.40-6.50); %Basophils 0.1 % (0.0-1.0); %Eosinophils 1.3 % (0.0-10.0); %Lymphocytes 4.1 % (21.0-51.0); %Neutrophils 87.4 % (42.0-75.0); Mean Corpuscular HGB CONC 34.6 g/dL (32.0-36.0); Mean Corpuscular Hemoglobin 29.2 pg (27.0-31.0); Mean Corpuscular Volume 84.3 fL (78.0-98.0); Mean Platelet Volume 8.6 fL (7.4-10.4); Platelet Count 161 thou/uL (130-400); RBC Distribution Width 13.7 % (11.5-14.5); Red Blood Cell (RBC) Count 4.12 mill/uL (4.70-6.10); White Blood Cell (WBC) Count 18.2 thou/uL (4.8-10.8)
[2021-06-22 07:52] LABS: Anion Gap 15 mmol/L (10-20); BUN (Urea Nitrogen) 35 mg/dL (8.4-25.7); Calc. Creatinine Clearance 55 mL/min (70-130); Carbon Dioxide 22 mmol/L (23-31); Chloride 103 mmol/L (98-107); Glucose 265 mg/dL (80-115); Sodium 136 mmol/L (136-145)
[2021-06-22 12:14] LABS: SARS-CoV-2 PCR by NAA Not Detected (NotDetected)
[2021-06-22] MEDS ORDERED: Fentanyl 100 MCG/2 ML VIAL ONE (13:04)
[2021-06-22] MEDS ORDERED: Ondansetron PF 4 MG/2 ML Vial ONE (13:23)
[2021-06-22] MEDS ORDERED: Lidocaine 1% PF 5 ML VIAL ONE (13:23)
[2021-06-22] MEDS ORDERED: Dexamethasone 20 MG/5 ML VIAL ONE (13:23)
[2021-06-22] MEDS ORDERED: Promethazine HCl 25 MG/ML VIAL IM PRN (14:07)
[2021-06-22] MEDS ORDERED: Promethazine HCl 25 MG/ML VIAL IVPB PRN (14:07)
[2021-06-22] MEDS ORDERED: Ondansetron HCl/PF 4 MG/2 ML Vial IVP PRN (14:07)
[2021-06-22] MEDS ORDERED: traMADol HCl 50 MG TAB PO PRN (14:32)
[2021-06-22] MEDS: Meropenem 1 GM in Sodium Chloride 0.9% 100 ML IVPB SCH (15:35)
[2021-06-22] MEDS ORDERED: Alirocumab [Praluent Pen] 75 MG/ML Pen.Injctr SC SCH (18:30)
[2021-06-22] MEDS: VANCOMYCIN 1.75 GM/350 ML BAG 1.75 GM in Premix Bag 1 BAG IVPB SCH (20:16)
[2021-06-22] MEDS: Lantus 1000 UNITS/10 ML VIAL SC SCH (20:18)
[2021-06-22] MEDS: Amlodipine 10 MG TAB PO SCH (20:33)
[2021-06-22] MEDS: Carvedilol 25 MG TAB PO SCH (20:33)
[2021-06-22] MEDS ORDERED: Lantus 1000 UNITS/10 ML VIAL SC SCH (21:00)
[2021-06-23] MEDS: Meropenem 1 GM in Sodium Chloride 0.9% 100 ML IVPB SCH ×2 (02:07→13:38)
[2021-06-23] MEDS: HumaLOG 300 UNITS/3 ML VIAL SC PRN ×3 (04:55→20:44)
[2021-06-23 06:36] LABS: #Eosinphils 0.1 thou/uL (0.0-0.7); #Lymphocytes 0.7 thou/uL (1.20-3.40); #Monocytes 0.7 thou/uL (0.11-0.59); #Neutrophils 18.4 thou/uL (1.40-6.50); %Basophils 0.1 % (0.0-1.0); %Eosinophils 0.4 % (0.0-10.0); %Lymphocytes 3.5 % (21.0-51.0); %Monocytes 3.5 % (0.0-10.0); %Neutrophils 92.6 % (42.0-75.0); Mean Corpuscular HGB CONC 33.2 g/dL (32.0-36.0); Mean Corpuscular Hemoglobin 28.2 pg (27.0-31.0); Mean Corpuscular Volume 84.9 fL (78.0-98.0); Mean Platelet Volume 8.8 fL (7.4-10.4); Platelet Count 183 thou/uL (130-400); RBC Distribution Width 13.7 % (11.5-14.5); Red Blood Cell (RBC) Count 4.26 mill/uL (4.70-6.10); White Blood Cell (WBC) Count 19.8 thou/uL (4.8-10.8)
[2021-06-23 06:58] LABS: Anion Gap 19 mmol/L (10-20); BUN (Urea Nitrogen) 39 mg/dL (8.4-25.7); Calc. Creatinine Clearance 61 mL/min (70-130); Calcium 8.2 mg/dL (7.8-10.44); Carbon Dioxide 19 mmol/L (23-31); Chloride 104 mmol/L (98-107); Glucose 261 mg/dL (80-115); Potassium 4.7 mmol/L (3.5-5.1); Sodium 137 mmol/L (136-145)
[2021-06-23] MEDS: Enoxaparin Sodium 40 MG/0.4 ML SYRINGE SC SCH (08:28)
[2021-06-23] MEDS: Carvedilol 25 MG TAB PO SCH ×2 (08:28→20:44)
[2021-06-23] MEDS: Empagliflozin 10 MG TAB PO SCH (08:28)
[2021-06-23 19:33] LABS: Vancomycin, Trough 16.9 ug/mL
[2021-06-23] MEDS: Amlodipine 10 MG TAB PO SCH (20:44)
[2021-06-23] MEDS: Lantus 1000 UNITS/10 ML VIAL SC SCH (20:46)
[2021-06-23] MEDS: VANCOMYCIN 1.75 GM/350 ML BAG 1.75 GM in Premix Bag 1 BAG IVPB SCH (20:55)
[2021-06-24] MEDS: Meropenem 1 GM in Sodium Chloride 0.9% 100 ML IVPB SCH (02:19)
[2021-06-24 06:27] LABS: #Eosinphils 0.5 thou/uL (0.0-0.7); #Lymphocytes 1.5 thou/uL (1.20-3.40); #Monocytes 0.9 thou/uL (0.11-0.59); %Basophils 0.2 % (0.0-1.0); %Eosinophils 3.1 % (0.0-10.0); %Lymphocytes 8.6 % (21.0-51.0); %Monocytes 5.1 % (0.0-10.0); %Neutrophils 83.1 % (42.0-75.0); Hemoglobin 11.5 g/dL (14.0-18.0); Mean Corpuscular HGB CONC 32.7 g/dL (32.0-36.0); Mean Corpuscular Hemoglobin 27.9 pg (27.0-31.0); Mean Corpuscular Volume 85.2 fL (78.0-98.0); Mean Platelet Volume 8.5 fL (7.4-10.4); Platelet Count 201 thou/uL (130-400); RBC Distribution Width 13.9 % (11.5-14.5); Red Blood Cell (RBC) Count 4.14 mill/uL (4.70-6.10); White Blood Cell (WBC) Count 16.9 thou/uL (4.8-10.8)
[2021-06-24 06:49] LABS: Anion Gap 13 mmol/L (10-20); BUN (Urea Nitrogen) 38 mg/dL (8.4-25.7); Calc. Creatinine Clearance 71 mL/min (70-130); Calcium 8.4 mg/dL (7.8-10.44); Carbon Dioxide 23 mmol/L (23-31); Chloride 106 mmol/L (98-107); Glucose 120 mg/dL (80-115); Potassium 4.2 mmol/L (3.5-5.1); Sodium 138 mmol/L (136-145)
[2021-06-24] MEDS: Empagliflozin 10 MG TAB PO SCH (08:22)
[2021-06-24] MEDS: Carvedilol 25 MG TAB PO SCH ×2 (08:22→21:07)
[2021-06-24] MEDS: Enoxaparin Sodium 40 MG/0.4 ML SYRINGE SC SCH (08:23)
[2021-06-24] MEDS ORDERED: Meropenem 1 GM in Sodium Chloride 0.9% 100 ML IVPB SCH (10:00)
[2021-06-24] MEDS: Acetaminophen 325 MG TAB PO PRN ×2 (17:29→21:13)
[2021-06-24] MEDS: HumaLOG 300 UNITS/3 ML VIAL SC PRN (17:29)
[2021-06-24] MEDS: MEROPENEM 1 GM/50 ML 1 GM in Premix Bag 1 BAG IVPB SCH (17:34)
[2021-06-24] MEDS: VANCOMYCIN 1.75 GM/350 ML BAG 1.75 GM in Premix Bag 1 BAG IVPB SCH (19:56)
[2021-06-24] MEDS: Lantus 1000 UNITS/10 ML VIAL SC SCH (20:00)
[2021-06-24] MEDS: Amlodipine 10 MG TAB PO SCH (21:07)
[2021-06-24] MEDS: Lisinopril 20 MG TAB PO SCH (21:07)
[2021-06-25] MEDS: MEROPENEM 1 GM/50 ML 1 GM in Premix Bag 1 BAG IVPB SCH ×3 (02:27→19:43)
[2021-06-25 06:11] LABS: #Eosinphils 0.5 thou/uL (0.0-0.7); #Lymphocytes 1.5 thou/uL (1.20-3.40); #Monocytes 0.8 thou/uL (0.11-0.59); #Neutrophils 11.7 thou/uL (1.40-6.50); %Basophils 0.2 % (0.0-1.0); %Eosinophils 3.2 % (0.0-10.0); %Lymphocytes 10.2 % (21.0-51.0); %Monocytes 5.7 % (0.0-10.0); %Neutrophils 80.8 % (42.0-75.0); Hemoglobin 11.9 g/dL (14.0-18.0); Mean Corpuscular HGB CONC 33.5 g/dL (32.0-36.0); Mean Corpuscular Hemoglobin 28.2 pg (27.0-31.0); Mean Platelet Volume 8.6 fL (7.4-10.4); Platelet Count 215 thou/uL (130-400); RBC Distribution Width 13.9 % (11.5-14.5); Red Blood Cell (RBC) Count 4.21 mill/uL (4.70-6.10); White Blood Cell (WBC) Count 14.4 thou/uL (4.8-10.8)
[2021-06-25 06:34] LABS: Anion Gap 14 mmol/L (10-20); BUN (Urea Nitrogen) 30 mg/dL (8.4-25.7); Calc. Creatinine Clearance 63 mL/min (70-130); Calcium 8.4 mg/dL (7.8-10.44); Carbon Dioxide 23 mmol/L (23-31); Chloride 107 mmol/L (98-107); Glucose 102 mg/dL (80-115); Potassium 4.1 mmol/L (3.5-5.1); Sodium 140 mmol/L (136-145)
[2021-06-25] MEDS: metFORMIN 500 MG TAB PO SCH ×2 (09:20→19:43)
[2021-06-25] MEDS: Carvedilol 25 MG TAB PO SCH ×2 (09:21→20:39)
[2021-06-25] MEDS: Empagliflozin 10 MG TAB PO SCH (09:21)
[2021-06-25] MEDS: Enoxaparin Sodium 40 MG/0.4 ML SYRINGE SC SCH (09:21)
[2021-06-25] MEDS: Alogliptin 6.25 MG TAB PO SCH (09:21)
[2021-06-25 19:24] LABS: Vancomycin, Trough 17.3 ug/mL
[2021-06-25] MEDS: Lantus 1000 UNITS/10 ML VIAL SC SCH (20:38)
[2021-06-25] MEDS: Lisinopril 20 MG TAB PO SCH (20:39)
[2021-06-25] MEDS: Amlodipine 10 MG TAB PO SCH (20:39)
[2021-06-25] MEDS: VANCOMYCIN 1.75 GM/350 ML BAG 1.75 GM in Premix Bag 1 BAG IVPB SCH (20:40)
[2021-06-25] MEDS: Acetaminophen 325 MG TAB PO PRN (20:45)
[2021-06-26] MEDS: MEROPENEM 1 GM/50 ML 1 GM in Premix Bag 1 BAG IVPB SCH ×3 (01:13→18:19)
[2021-06-26] MEDS: Empagliflozin 10 MG TAB PO SCH (08:36)
[2021-06-26] MEDS: Carvedilol 25 MG TAB PO SCH ×2 (08:36→20:04)
[2021-06-26] MEDS: metFORMIN 500 MG TAB PO SCH ×2 (08:36→17:12)
[2021-06-26] MEDS: Alogliptin 6.25 MG TAB PO SCH (08:36)
[2021-06-26] MEDS: Enoxaparin Sodium 40 MG/0.4 ML SYRINGE SC SCH (08:36)
[2021-06-26] MEDS: HumaLOG 300 UNITS/3 ML VIAL SC PRN ×2 (11:11→17:14)
[2021-06-26] MEDS: Acetaminophen 325 MG TAB PO PRN ×2 (12:17→20:03)
[2021-06-26] MEDS: VANCOMYCIN 1.75 GM/350 ML BAG 1.75 GM in Premix Bag 1 BAG IVPB SCH (20:03)
[2021-06-26] MEDS: Amlodipine 10 MG TAB PO SCH (20:04)
[2021-06-26] MEDS: Lisinopril 20 MG TAB PO SCH (20:04)
[2021-06-26] MEDS: Lantus 1000 UNITS/10 ML VIAL SC SCH (20:04)
[2021-06-27] MEDS: MEROPENEM 1 GM/50 ML 1 GM in Premix Bag 1 BAG IVPB SCH ×3 (01:45→18:09)
[2021-06-27 08:11] LABS: #Basophils 0.1 thou/uL (0.0-0.2); #Eosinphils 0.5 thou/uL (0.0-0.7); #Lymphocytes 1.2 thou/uL (1.20-3.40); %Basophils 0.6 % (0.0-1.0); %Eosinophils 3.2 % (0.0-10.0); %Lymphocytes 8.4 % (21.0-51.0); %Neutrophils 80.9 % (42.0-75.0); Hemoglobin 12.4 g/dL (14.0-18.0); Mean Corpuscular HGB CONC 33.1 g/dL (32.0-36.0); Mean Corpuscular Hemoglobin 27.9 pg (27.0-31.0); Mean Corpuscular Volume 84.2 fL (78.0-98.0); Mean Platelet Volume 8.3 fL (7.4-10.4); Platelet Count 268 thou/uL (130-400); Red Blood Cell (RBC) Count 4.45 mill/uL (4.70-6.10); White Blood Cell (WBC) Count 14.8 thou/uL (4.8-10.8)
[2021-06-27 08:30] LABS: Anion Gap 13 mmol/L (10-20); BUN (Urea Nitrogen) 25 mg/dL (8.4-25.7); Calc. Creatinine Clearance 76 mL/min (70-130); Calcium 8.4 mg/dL (7.8-10.44); Carbon Dioxide 21 mmol/L (23-31); Chloride 106 mmol/L (98-107); Glucose 98 mg/dL (80-115); Magnesium 1.6 mg/dL (1.6-2.6); Potassium 4.2 mmol/L (3.5-5.1); Sodium 136 mmol/L (136-145)
[2021-06-27] MEDS: metFORMIN 500 MG TAB PO SCH (08:51)
[2021-06-27] MEDS: Carvedilol 25 MG TAB PO SCH ×2 (08:51→20:36)
[2021-06-27] MEDS: Alogliptin 6.25 MG TAB PO SCH (08:51)
[2021-06-27] MEDS: Saccharomyces boulardii 250 MG CAP PO SCH (08:51)
[2021-06-27] MEDS: Empagliflozin 10 MG TAB PO SCH (08:52)
[2021-06-27] MEDS ORDERED: hydrALAZINE 25 MG TAB PO PRN (09:59)
[2021-06-27] MEDS ORDERED: Magnesium Sulfate 2 GM in Sodium Chloride 0.9% 100 ML IVPB SCH (10:15)
[2021-06-27] MEDS: Acetaminophen 325 MG TAB PO PRN ×2 (10:31→20:41)
[2021-06-27] MEDS ORDERED: Magnesium 2 GM/50 ML 2 GM in Premix Bag 1 BAG IVPB SCH (11:00)
[2021-06-27 19:30] LABS: Vancomycin, Trough 19.3 ug/mL
[2021-06-27] MEDS: VANCOMYCIN 1.75 GM/350 ML BAG 1.75 GM in Premix Bag 1 BAG IVPB SCH (20:35)
[2021-06-27] MEDS: Lantus 1000 UNITS/10 ML VIAL SC SCH (20:35)
[2021-06-27] MEDS: Amlodipine 10 MG TAB PO SCH (20:35)
[2021-06-27] MEDS: Lisinopril 20 MG TAB PO SCH (20:36)
[2021-06-28] MEDS: MEROPENEM 1 GM/50 ML 1 GM in Premix Bag 1 BAG IVPB SCH ×3 (02:23→17:28)
[2021-06-28 06:14] LABS: #Basophils 0.1 thou/uL (0.0-0.2); #Eosinphils 0.5 thou/uL (0.0-0.7); #Lymphocytes 1.5 thou/uL (1.20-3.40); #Neutrophils 10.6 thou/uL (1.40-6.50); %Basophils 0.6 % (0.0-1.0); %Eosinophils 3.3 % (0.0-10.0); %Monocytes 7.2 % (0.0-10.0); %Neutrophils 77.9 % (42.0-75.0); Hemoglobin 11.9 g/dL (14.0-18.0); Mean Corpuscular HGB CONC 33.3 g/dL (32.0-36.0); Mean Corpuscular Hemoglobin 28.1 pg (27.0-31.0); Mean Corpuscular Volume 84.4 fL (78.0-98.0); Mean Platelet Volume 8.4 fL (7.4-10.4); Platelet Count 244 thou/uL (130-400); RBC Distribution Width 13.9 % (11.5-14.5); Red Blood Cell (RBC) Count 4.22 mill/uL (4.70-6.10); White Blood Cell (WBC) Count 13.7 thou/uL (4.8-10.8)
[2021-06-28] MEDS: Acetaminophen 325 MG TAB PO PRN ×2 (06:16→15:03)
[2021-06-28 06:37] LABS: Anion Gap 13 mmol/L (10-20); BUN (Urea Nitrogen) 22 mg/dL (8.4-25.7); Calc. Creatinine Clearance 76 mL/min (70-130); Calcium 8.5 mg/dL (7.8-10.44); Carbon Dioxide 22 mmol/L (23-31); Chloride 106 mmol/L (98-107); Glucose 133 mg/dL (80-115); Potassium 4.4 mmol/L (3.5-5.1); Sodium 137 mmol/L (136-145)
[2021-06-28] MEDS: Saccharomyces boulardii 250 MG CAP PO SCH (08:24)
[2021-06-28] MEDS: Carvedilol 25 MG TAB PO SCH ×2 (08:24→20:28)
[2021-06-28] MEDS: Empagliflozin 10 MG TAB PO SCH (08:24)
[2021-06-28] MEDS: Lisinopril 20 MG TAB PO SCH (20:19)
[2021-06-28] MEDS: VANCOMYCIN 1.75 GM/350 ML BAG 1.75 GM in Premix Bag 1 BAG IVPB SCH (20:27)
[2021-06-28] MEDS: Amlodipine 10 MG TAB PO SCH (20:28)
[2021-06-28] MEDS: Lantus 1000 UNITS/10 ML VIAL SC SCH (20:29)
[2021-06-29] MEDS: MEROPENEM 1 GM/50 ML 1 GM in Premix Bag 1 BAG IVPB SCH ×3 (02:28→17:36)
[2021-06-29 06:56] LABS: #Basophils 0.1 thou/uL (0.0-0.2); #Eosinphils 0.4 thou/uL (0.0-0.7); #Lymphocytes 1.5 thou/uL (1.20-3.40); #Monocytes 1.3 thou/uL (0.11-0.59); #Neutrophils 10.6 thou/uL (1.40-6.50); %Basophils 0.5 % (0.0-1.0); %Eosinophils 2.6 % (0.0-10.0); %Monocytes 9.1 % (0.0-10.0); %Neutrophils 76.8 % (42.0-75.0); Hemoglobin 10.5 g/dL (14.0-18.0); Mean Corpuscular Hemoglobin 28.1 pg (27.0-31.0); Mean Corpuscular Volume 85.2 fL (78.0-98.0); Platelet Count 211 thou/uL (130-400); Red Blood Cell (RBC) Count 3.74 mill/uL (4.70-6.10); White Blood Cell (WBC) Count 13.9 thou/uL (4.8-10.8)
[2021-06-29 07:17] LABS: Anion Gap 12 mmol/L (10-20); BUN (Urea Nitrogen) 22 mg/dL (8.4-25.7); Calc. Creatinine Clearance 71 mL/min (70-130); Calcium 7.7 mg/dL (7.8-10.44); Carbon Dioxide 23 mmol/L (23-31); Chloride 106 mmol/L (98-107); Glucose 77 mg/dL (80-115); Potassium 4.3 mmol/L (3.5-5.1); Sodium 137 mmol/L (136-145)
[2021-06-29] MEDS: Acetaminophen 325 MG TAB PO PRN (08:23)
[2021-06-29] MEDS: Empagliflozin 10 MG TAB PO SCH (08:24)
[2021-06-29] MEDS: Carvedilol 25 MG TAB PO SCH ×2 (08:24→20:46)
[2021-06-29] MEDS: Saccharomyces boulardii 250 MG CAP PO SCH (08:24)
[2021-06-29] MEDS ORDERED: hydrALAZINE 25 MG TAB PO PRN (13:22)
[2021-06-29] MEDS: hydrALAZINE 25 MG TAB PO SCH ×2 (15:35→20:51)
[2021-06-29 17:06] LABS: SARS-CoV-2 PCR by NAA Not Detected (NotDetected)
[2021-06-29 19:29] LABS: Vancomycin, Trough 18.1 ug/mL
[2021-06-29] MEDS: Amlodipine 10 MG TAB PO SCH (20:45)
[2021-06-29] MEDS: Lisinopril 20 MG TAB PO SCH (20:46)
[2021-06-29] MEDS: VANCOMYCIN 1.75 GM/350 ML BAG 1.75 GM in Premix Bag 1 BAG IVPB SCH (20:48)
[2021-06-29] MEDS: Lantus 1000 UNITS/10 ML VIAL SC SCH (21:02)
[2021-06-30] MEDS: hydrALAZINE 20 MG/ML VIAL SLOW IVP PRN ×2 (01:25→23:41)
[2021-06-30] MEDS: MEROPENEM 1 GM/50 ML 1 GM in Premix Bag 1 BAG IVPB SCH ×3 (01:32→17:39)
[2021-06-30] MEDS: Acetaminophen 325 MG TAB PO PRN (01:35)
[2021-06-30 06:50] LABS: #Basophils 0.1 thou/uL (0.0-0.2); #Eosinphils 0.4 thou/uL (0.0-0.7); #Lymphocytes 1.6 thou/uL (1.20-3.40); #Monocytes 1.3 thou/uL (0.11-0.59); #Neutrophils 11.5 thou/uL (1.40-6.50); %Basophils 0.8 % (0.0-1.0); %Eosinophils 2.9 % (0.0-10.0); %Lymphocytes 10.6 % (21.0-51.0); %Monocytes 8.6 % (0.0-10.0); %Neutrophils 77.2 % (42.0-75.0); Hemoglobin 10.6 g/dL (14.0-18.0); Mean Corpuscular HGB CONC 32.8 g/dL (32.0-36.0); Mean Corpuscular Hemoglobin 27.9 pg (27.0-31.0); Mean Platelet Volume 8.2 fL (7.4-10.4); Platelet Count 210 thou/uL (130-400); RBC Distribution Width 13.9 % (11.5-14.5); Red Blood Cell (RBC) Count 3.79 mill/uL (4.70-6.10); White Blood Cell (WBC) Count 14.9 thou/uL (4.8-10.8)
[2021-06-30 07:07] LABS: Anion Gap 14 mmol/L (10-20); BUN (Urea Nitrogen) 26 mg/dL (8.4-25.7); Calc. Creatinine Clearance 70 mL/min (70-130); Calcium 8.1 mg/dL (7.8-10.44); Carbon Dioxide 21 mmol/L (23-31); Chloride 105 mmol/L (98-107); Glucose 105 mg/dL (80-115); Potassium 3.8 mmol/L (3.5-5.1); Sodium 136 mmol/L (136-145)
[2021-06-30] MEDS: hydrALAZINE 25 MG TAB PO SCH ×3 (09:36→20:04)
[2021-06-30] MEDS: Empagliflozin 10 MG TAB PO SCH (09:36)
[2021-06-30] MEDS: Carvedilol 25 MG TAB PO SCH ×2 (09:36→20:04)
[2021-06-30] MEDS: Saccharomyces boulardii 250 MG CAP PO SCH (09:36)
[2021-06-30] MEDS ORDERED: Magnevist 469MG/ML 20 ML VIAL ONE (10:39)
[2021-06-30] MEDS: HumaLOG 300 UNITS/3 ML VIAL SC PRN (12:12)
[2021-06-30] MEDS: Amlodipine 10 MG TAB PO SCH (20:03)
[2021-06-30] MEDS: Lisinopril 20 MG TAB PO SCH (20:04)
[2021-06-30] MEDS: VANCOMYCIN 1.75 GM/350 ML BAG 1.75 GM in Premix Bag 1 BAG IVPB SCH (20:05)
[2021-06-30] MEDS: Lantus 1000 UNITS/10 ML VIAL SC SCH (20:15)
[2021-06-30] MEDS ORDERED: Enoxaparin Sodium 40 MG/0.4 ML SYRINGE SC SCH (21:00)
[2021-07-01] MEDS: MEROPENEM 1 GM/50 ML 1 GM in Premix Bag 1 BAG IVPB SCH ×3 (02:01→20:28)
[2021-07-01 08:49] LABS: #Basophils 0.1 thou/uL (0.0-0.2); #Eosinphils 0.4 thou/uL (0.0-0.7); #Lymphocytes 1.5 thou/uL (1.20-3.40); #Monocytes 1.3 thou/uL (0.11-0.59); %Basophils 0.6 % (0.0-1.0); %Eosinophils 2.2 % (0.0-10.0); %Lymphocytes 8.4 % (21.0-51.0); %Monocytes 7.3 % (0.0-10.0); %Neutrophils 81.5 % (42.0-75.0); Hemoglobin 10.9 g/dL (14.0-18.0); Mean Corpuscular HGB CONC 32.7 g/dL (32.0-36.0); Mean Corpuscular Hemoglobin 27.7 pg (27.0-31.0); Mean Corpuscular Volume 84.8 fL (78.0-98.0); Mean Platelet Volume 8.4 fL (7.4-10.4); Platelet Count 223 thou/uL (130-400); RBC Distribution Width 13.9 % (11.5-14.5); Red Blood Cell (RBC) Count 3.91 mill/uL (4.70-6.10); White Blood Cell (WBC) Count 17.2 thou/uL (4.8-10.8)
[2021-07-01 09:08] LABS: Anion Gap 14 mmol/L (10-20); BUN (Urea Nitrogen) 27 mg/dL (8.4-25.7); Calc. Creatinine Clearance 64 mL/min (70-130); Calcium 8.7 mg/dL (7.8-10.44); Carbon Dioxide 21 mmol/L (23-31); Chloride 105 mmol/L (98-107); Glucose 109 mg/dL (80-115); Potassium 4.2 mmol/L (3.5-5.1); Sodium 136 mmol/L (136-145)
[2021-07-01] MEDS: Carvedilol 25 MG TAB PO SCH ×2 (09:25→20:34)
[2021-07-01] MEDS: hydrALAZINE 25 MG TAB PO SCH ×3 (09:25→20:34)
[2021-07-01] MEDS: Saccharomyces boulardii 250 MG CAP PO SCH (09:25)
[2021-07-01] MEDS: Empagliflozin 10 MG TAB PO SCH (09:25)
[2021-07-01] MEDS: HumaLOG 300 UNITS/3 ML VIAL SC PRN ×2 (12:11→16:00)
[2021-07-01] MEDS: Amlodipine 10 MG TAB PO SCH (20:33)
[2021-07-01] MEDS: Lantus 1000 UNITS/10 ML VIAL SC SCH (20:34)
[2021-07-01] MEDS: Lisinopril 20 MG TAB PO SCH (20:34)
[2021-07-02 07:50] LABS: #Basophils 0.1 thou/uL (0.0-0.2); #Eosinphils 0.5 thou/uL (0.0-0.7); #Lymphocytes 1.5 thou/uL (1.20-3.40); #Monocytes 1.1 thou/uL (0.11-0.59); #Neutrophils 12.1 thou/uL (1.40-6.50); %Basophils 0.8 % (0.0-1.0); %Eosinophils 3.6 % (0.0-10.0); %Lymphocytes 9.9 % (21.0-51.0); %Monocytes 6.9 % (0.0-10.0); %Neutrophils 78.9 % (42.0-75.0); Mean Corpuscular HGB CONC 31.3 g/dL (32.0-36.0); Mean Corpuscular Hemoglobin 26.6 pg (27.0-31.0); Mean Platelet Volume 8.6 fL (7.4-10.4); Platelet Count 256 thou/uL (130-400); RBC Distribution Width 14.1 % (11.5-14.5); Red Blood Cell (RBC) Count 4.15 mill/uL (4.70-6.10); White Blood Cell (WBC) Count 15.3 thou/uL (4.8-10.8)
[2021-07-02 08:08] LABS: Anion Gap 12 mmol/L (10-20); BUN (Urea Nitrogen) 32 mg/dL (8.4-25.7); Calc. Creatinine Clearance 64 mL/min (70-130); Carbon Dioxide 22 mmol/L (23-31); Chloride 107 mmol/L (98-107); Glucose 80 mg/dL (80-115); Potassium 4.1 mmol/L (3.5-5.1); Sodium 137 mmol/L (136-145)
[2021-07-02] MEDS: Carvedilol 25 MG TAB PO SCH ×2 (09:21→20:24)
[2021-07-02] MEDS: Saccharomyces boulardii 250 MG CAP PO SCH (09:21)
[2021-07-02] MEDS: hydrALAZINE 25 MG TAB PO SCH ×3 (09:22→20:23)
[2021-07-02] MEDS: Empagliflozin 10 MG TAB PO SCH (09:22)
[2021-07-02] MEDS: MEROPENEM 1 GM/50 ML 1 GM in Premix Bag 1 BAG IVPB SCH ×2 (09:23→20:24)
[2021-07-02] MEDS ORDERED: Lidocaine 1% w/Epinephrine 1:100K 20 ML VIAL ONE (15:08)
[2021-07-02] MEDS: Amlodipine 10 MG TAB PO SCH (20:24)
[2021-07-02] MEDS: Lisinopril 20 MG TAB PO SCH (20:24)
[2021-07-02] MEDS: Lantus 1000 UNITS/10 ML VIAL SC SCH (20:37)
[2021-07-03] MEDS: Acetaminophen 325 MG TAB PO PRN (01:08)
[2021-07-03 08:04] LABS: #Basophils 0.1 thou/uL (0.0-0.2); #Eosinphils 0.7 thou/uL (0.0-0.7); #Lymphocytes 1.4 thou/uL (1.20-3.40); #Monocytes 1.1 thou/uL (0.11-0.59); #Neutrophils 10.3 thou/uL (1.40-6.50); %Basophils 0.6 % (0.0-1.0); %Eosinophils 5.1 % (0.0-10.0); %Monocytes 7.9 % (0.0-10.0); %Neutrophils 76.4 % (42.0-75.0); Mean Corpuscular HGB CONC 32.4 g/dL (32.0-36.0); Mean Corpuscular Hemoglobin 27.8 pg (27.0-31.0); Mean Corpuscular Volume 85.8 fL (78.0-98.0); Mean Platelet Volume 8.6 fL (7.4-10.4); Platelet Count 239 thou/uL (130-400); RBC Distribution Width 13.9 % (11.5-14.5); White Blood Cell (WBC) Count 13.5 thou/uL (4.8-10.8)
[2021-07-03 08:12] LABS: Anion Gap 14 mmol/L (10-20); BUN (Urea Nitrogen) 31 mg/dL (8.4-25.7); Calc. Creatinine Clearance 77 mL/min (70-130); Calcium 8.2 mg/dL (7.8-10.44); Carbon Dioxide 23 mmol/L (23-31); Chloride 107 mmol/L (98-107); Glucose 105 mg/dL (80-115); Potassium 4.5 mmol/L (3.5-5.1); Sodium 139 mmol/L (136-145)
[2021-07-03] MEDS: Saccharomyces boulardii 250 MG CAP PO SCH (09:19)
[2021-07-03] MEDS: hydrALAZINE 25 MG TAB PO SCH ×3 (09:19→21:28)
[2021-07-03] MEDS: MEROPENEM 1 GM/50 ML 1 GM in Premix Bag 1 BAG IVPB SCH ×2 (09:21→21:29)
[2021-07-03] MEDS: Carvedilol 25 MG TAB PO SCH ×2 (09:21→21:28)
[2021-07-03] MEDS: Empagliflozin 10 MG TAB PO SCH (09:21)
[2021-07-03] MEDS: Lisinopril 20 MG TAB PO SCH (21:28)
[2021-07-03] MEDS: Amlodipine 10 MG TAB PO SCH (21:28)
[2021-07-03] MEDS: Lantus 1000 UNITS/10 ML VIAL SC SCH (21:31)
[2021-07-04] MEDS: HumaLOG 300 UNITS/3 ML VIAL SC PRN (00:32)
[2021-07-04 06:55] LABS: #Basophils 0.1 thou/uL (0.0-0.2); #Eosinphils 0.5 thou/uL (0.0-0.7); #Lymphocytes 1.5 thou/uL (1.20-3.40); #Monocytes 0.9 thou/uL (0.11-0.59); #Neutrophils 9.2 thou/uL (1.40-6.50); %Basophils 0.8 % (0.0-1.0); %Eosinophils 4.4 % (0.0-10.0); %Lymphocytes 12.3 % (21.0-51.0); %Monocytes 7.2 % (0.0-10.0); %Neutrophils 75.3 % (42.0-75.0); Hemoglobin 10.9 g/dL (14.0-18.0); Mean Corpuscular HGB CONC 32.1 g/dL (32.0-36.0); Mean Corpuscular Hemoglobin 27.4 pg (27.0-31.0); Mean Corpuscular Volume 85.4 fL (78.0-98.0); Mean Platelet Volume 8.4 fL (7.4-10.4); Platelet Count 292 thou/uL (130-400); RBC Distribution Width 13.9 % (11.5-14.5); Red Blood Cell (RBC) Count 3.99 mill/uL (4.70-6.10); White Blood Cell (WBC) Count 12.2 thou/uL (4.8-10.8)
[2021-07-04 07:08] LABS: Anion Gap 13 mmol/L (10-20); BUN (Urea Nitrogen) 29 mg/dL (8.4-25.7); Calc. Creatinine Clearance 85 mL/min (70-130); Calcium 8.6 mg/dL (7.8-10.44); Carbon Dioxide 22 mmol/L (23-31); Chloride 105 mmol/L (98-107); Glucose 109 mg/dL (80-115); Potassium 4.2 mmol/L (3.5-5.1); Sodium 136 mmol/L (136-145)
[2021-07-04] MEDS: hydrALAZINE 25 MG TAB PO SCH ×3 (08:14→20:35)
[2021-07-04] MEDS: MEROPENEM 1 GM/50 ML 1 GM in Premix Bag 1 BAG IVPB SCH ×2 (08:14→20:34)
[2021-07-04] MEDS: Carvedilol 25 MG TAB PO SCH ×2 (08:14→20:35)
[2021-07-04] MEDS: Saccharomyces boulardii 250 MG CAP PO SCH (08:14)
[2021-07-04] MEDS: Empagliflozin 10 MG TAB PO SCH (10:04)
[2021-07-04] MEDS: hydrALAZINE 20 MG/ML VIAL SLOW IVP PRN (17:27)
[2021-07-04] MEDS: Lisinopril 20 MG TAB PO SCH (20:35)
[2021-07-04] MEDS: Amlodipine 10 MG TAB PO SCH (20:35)
[2021-07-04] MEDS: Lantus 1000 UNITS/10 ML VIAL SC SCH (20:36)
[2021-07-05 06:33] LABS: #Basophils 0.1 thou/uL (0.0-0.2); #Eosinphils 0.9 thou/uL (0.0-0.7); #Lymphocytes 1.2 thou/uL (1.20-3.40); #Monocytes 0.9 thou/uL (0.11-0.59); #Neutrophils 9.5 thou/uL (1.40-6.50); %Basophils 0.7 % (0.0-1.0); %Eosinophils 7.1 % (0.0-10.0); %Lymphocytes 9.8 % (21.0-51.0); %Monocytes 6.9 % (0.0-10.0); %Neutrophils 75.6 % (42.0-75.0); Hemoglobin 10.6 g/dL (14.0-18.0); Mean Corpuscular HGB CONC 31.9 g/dL (32.0-36.0); Mean Corpuscular Hemoglobin 27.5 pg (27.0-31.0); Mean Platelet Volume 8.2 fL (7.4-10.4); Platelet Count 300 thou/uL (130-400); RBC Distribution Width 13.9 % (11.5-14.5); Red Blood Cell (RBC) Count 3.87 mill/uL (4.70-6.10); White Blood Cell (WBC) Count 12.6 thou/uL (4.8-10.8)
[2021-07-05 06:49] LABS: Anion Gap 11 mmol/L (10-20); BUN (Urea Nitrogen) 21 mg/dL (8.4-25.7); Calc. Creatinine Clearance 84 mL/min (70-130); Calcium 8.6 mg/dL (7.8-10.44); Carbon Dioxide 25 mmol/L (23-31); Chloride 106 mmol/L (98-107); Glucose 73 mg/dL (80-115); Sodium 138 mmol/L (136-145)
[2021-07-05] MEDS: Empagliflozin 10 MG TAB PO SCH (08:32)
[2021-07-05] MEDS: hydrALAZINE 25 MG TAB PO SCH ×3 (08:32→21:10)
[2021-07-05] MEDS: Saccharomyces boulardii 250 MG CAP PO SCH (08:32)
[2021-07-05] MEDS: Carvedilol 25 MG TAB PO SCH ×2 (08:32→21:10)
[2021-07-05] MEDS: MEROPENEM 1 GM/50 ML 1 GM in Premix Bag 1 BAG IVPB SCH ×2 (08:33→15:55)
[2021-07-05] MEDS: hydrALAZINE 20 MG/ML VIAL SLOW IVP PRN (12:09)
[2021-07-05] MEDS: Amlodipine 10 MG TAB PO SCH (21:10)
[2021-07-05] MEDS: Lantus 1000 UNITS/10 ML VIAL SC SCH (21:10)
[2021-07-05] MEDS: Lisinopril 20 MG TAB PO SCH (21:10)
[2021-07-06] MEDS: MEROPENEM 1 GM/50 ML 1 GM in Premix Bag 1 BAG IVPB SCH ×2 (00:15→09:04)
[2021-07-06 07:20] LABS: #Basophils 0.1 thou/uL (0.0-0.2); #Eosinphils 1.1 thou/uL (0.0-0.7); #Lymphocytes 1.5 thou/uL (1.20-3.40); #Monocytes 0.9 thou/uL (0.11-0.59); #Neutrophils 8.7 thou/uL (1.40-6.50); %Eosinophils 8.7 % (0.0-10.0); %Lymphocytes 12.1 % (21.0-51.0); %Neutrophils 71.4 % (42.0-75.0); Hemoglobin 10.3 g/dL (14.0-18.0); Mean Corpuscular HGB CONC 33.2 g/dL (32.0-36.0); Mean Corpuscular Hemoglobin 28.3 pg (27.0-31.0); Mean Corpuscular Volume 85.2 fL (78.0-98.0); Mean Platelet Volume 8.4 fL (7.4-10.4); Platelet Count 310 thou/uL (130-400); RBC Distribution Width 13.8 % (11.5-14.5); Red Blood Cell (RBC) Count 3.65 mill/uL (4.70-6.10); White Blood Cell (WBC) Count 12.3 thou/uL (4.8-10.8)
[2021-07-06] MEDS: Empagliflozin 10 MG TAB PO SCH (08:00)
[2021-07-06] MEDS: hydrALAZINE 25 MG TAB PO SCH (08:00)
[2021-07-06] MEDS: Carvedilol 25 MG TAB PO SCH (08:01)
[2021-07-06] MEDS: Saccharomyces boulardii 250 MG CAP PO SCH (08:01)
[2021-07-06 08:05] VITALS: BP 137/65
[2021-07-06 09:26] VITALS: TEMP 97.4
[2021-07-06] MEDS ORDERED: Heparin 1,000 UNITS/ML VIAL ONE (11:29)
== END 2021-07-06 15:01 | disposition home health service (06) | DRG 854 ==
LOC: ERS 14:59 → T4-A 20:37
PROVIDERS: ADMIT Internal Medicine Infectious Disease; ATTEND Family Medicine
PROC: 0Y6N0ZC Detachment at Left Foot, Partial 3rd Ray, Open Approach (ICD-10-PCS; principal; 2021-06-22)
PROC: 0J9R0ZZ Drainage of Left Foot Subcutaneous Tissue and Fascia, Open Approach (ICD-10-PCS; 2021-07-03)
PROC: 02HV33Z Insertion of Infusion Device into Superior Vena Cava, Percutaneous Approach (ICD-10-PCS; 2021-07-06)
PROC: B5181ZA Fluoroscopy of Superior Vena Cava using Low Osmolar Contrast, Guidance (ICD-10-PCS; 2021-07-06)
PROC: B548ZZA Ultrasonography of Superior Vena Cava, Guidance (ICD-10-PCS; 2021-07-06)
DX: A41.9 Sepsis, unspecified organism (principal); E11.52 Type 2 diabetes mellitus with diabetic peripheral angiopathy with gangrene; I96 Gangrene, not elsewhere classified; L03.116 Cellulitis of left lower limb; N17.9 Acute kidney failure, unspecified; L02.612 Cutaneous abscess of left foot; Z66 Do not resuscitate; Z20.822 Contact with and (suspected) exposure to COVID-19; R65.20 Severe sepsis without septic shock; E11.621 Type 2 diabetes mellitus with foot ulcer; L97.529 Non-pressure chronic ulcer of other part of left foot with unspecified severity; E78.5 Hyperlipidemia, unspecified; E78.00 Pure hypercholesterolemia, unspecified; I12.9 Hypertensive chronic kidney disease with stage 1 through stage 4 chronic kidney disease, or unspecified chronic kidney disease; N18.30 Chronic kidney disease, stage 3 unspecified; E11.42 Type 2 diabetes mellitus with diabetic polyneuropathy; E11.22 Type 2 diabetes mellitus with diabetic chronic kidney disease; I25.10 Atherosclerotic heart disease of native coronary artery without angina pectoris; E11.628 Type 2 diabetes mellitus with other skin complications; I87.8 Other specified disorders of veins; E66.9 Obesity, unspecified; E83.42 Hypomagnesemia; Z68.33 Body mass index [BMI] 33.0-33.9, adult; Z28.21 Immunization not carried out because of patient refusal; Z79.4 Long term (current) use of insulin; Z95.1 Presence of aortocoronary bypass graft; Z90.49 Acquired absence of other specified parts of digestive tract; Z88.5 Allergy status to narcotic agent; Z88.8 Allergy status to other drugs, medicaments and biological substances; Z91.041 Radiographic dye allergy status; Z79.84 Long term (current) use of oral hypoglycemic drugs; Z79.899 Other long term (current) drug therapy; Z85.9 Personal history of malignant neoplasm, unspecified; Z87.891 Personal history of nicotine dependence
CPT/HCPCS: 36415; 36416; 36569; 80048; 80202; 83605; 83735; 85025; 85652; 86140; 87040; 87070; 87076; 87077; 87205; 88305; 88311; 93923; 94760; 96365; 96366; 96367; A9579; C1751; J0360; J0692; J1100; J1644; J1650; J1815; J2185; J2405; J3010; J3370; J3475; J3490; J7050; U0003; U0005

== ENCOUNTER 2022-02-03 12:24 | Outpatient (CLI) | payer MEDICARE, BC | END 2022-02-03 12:25 | disposition home or self-care (01) | LOC: BICRAD 12:24 | PROVIDERS: ATTEND Podiatrist | DX: L97.429 Non-pressure chronic ulcer of left heel and midfoot with unspecified severity (principal) ==

== ENCOUNTER 2023-05-23 12:29 | Inpatient (IN) | payer MEDICARE, BC ==
[2023-05-23 13:43] LABS: #Basophils 0.1 thou/uL (0.0-0.2); #Monocytes 1.2 thou/uL (0.11-0.59); #Neutrophils 15.7 thou/uL (1.40-6.50); %Basophils 0.3 % (0.0-1.0); %Eosinophils 0.2 % (0.0-10.0); %Lymphocytes 4.8 % (21.0-51.0); %Monocytes 6.6 % (0.0-10.0); %Neutrophils 85.4 % (42.0-75.0); Hematocrit 39.6 % (42.0-52.0); Hemoglobin 13.3 g/dL (14.0-18.0); Mean Corpuscular HGB CONC 33.6 g/dL (32.0-36.0); Mean Corpuscular Hemoglobin 29.4 pg (27.0-31.0); Mean Corpuscular Volume 87.4 fl (78.0-98.0); Mean Platelet Volume 10.6 fL (7.4-10.4); Platelet Count 258 10x3/uL (130-400); RBC Distribution Width 13.4 % (11.5-14.5); Red Blood Cell (RBC) Count 4.53 mill/uL (4.70-6.10); White Blood Cell (WBC) Count 18.4 10x3/uL (4.8-10.8)
[2023-05-23] MEDS ORDERED: Cefepime 2 GM VIAL ONE (14:05)
[2023-05-23] MEDS ORDERED: Vancomycin 1 GM/200 ML (FROZEN) BAG ONE (14:05)
[2023-05-23 14:06] LABS: Albumin 3.3 g/dL (3.4-4.8); Anion Gap 20 mmol/L (10-20); BUN (Urea Nitrogen) 46 mg/dL (8.4-25.7); Bilirubin, Total 0.3 mg/dL (0.2-1.2); Calc. Creatinine Clearance 0 mL/min (70-130); Calcium 9.5 mg/dL (7.8-10.44); Carbon Dioxide 19 mmol/L (23-31); Chloride 91 mmol/L (98-107); Estimated GFR 23; Protein, Total 7.4 g/dL (5.8-8.1); Sodium 125 mmol/L (136-145)
[2023-05-23 14:07] LABS: ALT (SGPT) 7 U/L (8-55); AST (SGOT) 14 U/L (5-34); Alkaline Phosphatase 133 U/L (40-110); Globulin 4.1 g/dL (2.4-3.5)
[2023-05-23 14:27] LABS: Glucose 651 mg/dL (80-115)
[2023-05-23] MEDS ORDERED: Insulin Regular 300 UNITS/3 ML VIAL ONE (14:39)
[2023-05-23] MEDS ORDERED: HYDROcodone/Acetaminophen 5/325 mg Tablet PO PRN (14:58)
[2023-05-23] MEDS ORDERED: Ondansetron PF 4 MG/2 ML Vial IVP PRN (14:58)
[2023-05-23] MEDS ORDERED: Ondansetron ODT 4 MG TAB PO PRN (14:58)
[2023-05-23] MEDS ORDERED: VANC IVPB PRN (15:01)
[2023-05-23] MEDS ORDERED: Dextrose 50% Abboject 50 ML SYRINGE SLOW IVP PRN (15:03)
[2023-05-23] MEDS ORDERED: Dextrose 5% in Water 1,000 ML IV PRN (15:03)
[2023-05-23] MEDS ORDERED: Glucagon 1 MG/ML KIT IM PRN (15:03)
[2023-05-23] MEDS ORDERED: Amlodipine 5 MG TAB PO SCH (16:00)
[2023-05-23] MEDS ORDERED: Vancomycin (BATCH) 2 GM in Premix 1 BAG IVPB SCH (16:00)
[2023-05-23 17:59] VITALS: BMI 30.8
[2023-05-23] MEDS ORDERED: FLU VACC QS2023(65UP)/MF59C/PF 60 MCG/0.5 ML SYRINGE IM ONE (18:15)
[2023-05-23] MEDS: Sodium Chloride 0.9% 1,000 ML IV SCH (18:26)
[2023-05-23] MEDS: HumaLOG 300 UNITS/3 ML VIAL SC PRN (18:26)
[2023-05-24] MEDS: Insulin Glargine 30 UNITS/0.3 ML VIAL SC SCH ×3 (00:05→21:02)
[2023-05-24] MEDS: Amlodipine 5 MG TAB PO SCH ×3 (00:05→21:02)
[2023-05-24] MEDS: Acetaminophen 325 MG TAB PO PRN (00:23)
[2023-05-24] MEDS: Sodium Chloride 0.9% 1,000 ML IV SCH ×3 (00:26→16:17)
[2023-05-24] MEDS: Cefepime 1 GM in Sodium Chloride 0.9% 100 ML IVPB SCH ×2 (03:48→15:15)
[2023-05-24 06:46] LABS: #Eosinphils 0.1 thou/uL (0.0-0.7); #Monocytes 1.2 thou/uL (0.11-0.59); #Neutrophils 12.5 thou/uL (1.40-6.50); %Basophils 0.2 % (0.0-1.0); %Eosinophils 0.9 % (0.0-10.0); %Lymphocytes 7.7 % (21.0-51.0); %Monocytes 7.9 % (0.0-10.0); %Neutrophils 80.3 % (42.0-75.0); Hematocrit 33.1 % (42.0-52.0); Mean Corpuscular HGB CONC 33.2 g/dL (32.0-36.0); Mean Corpuscular Hemoglobin 29.5 pg (27.0-31.0); Mean Corpuscular Volume 88.7 fl (78.0-98.0); Mean Platelet Volume 10.5 fL (7.4-10.4); Platelet Count 215 10x3/uL (130-400); RBC Distribution Width 13.5 % (11.5-14.5); Red Blood Cell (RBC) Count 3.73 mill/uL (4.70-6.10); White Blood Cell (WBC) Count 15.6 10x3/uL (4.8-10.8)
[2023-05-24 07:09] LABS: Anion Gap 14 mmol/L (10-20); BUN (Urea Nitrogen) 35 mg/dL (8.4-25.7); Calc. Creatinine Clearance 49 mL/min (70-130); Calcium 8.3 mg/dL (7.8-10.44); Carbon Dioxide 21 mmol/L (23-31); Chloride 104 mmol/L (98-107); Estimated GFR 33; Glucose 276 mg/dL (80-115); Potassium 4.1 mmol/L (3.5-5.1); Sodium 135 mmol/L (136-145)
[2023-05-24] MEDS ORDERED: Bupivacaine PF 0.5% 30 ML VIAL ONE (14:53)
[2023-05-24] MEDS ORDERED: Lidocaine 2% PF 5 ML VIAL ONE (14:54)
[2023-05-24] MEDS ORDERED: Bacitracin Zinc Ointment 30 gm TUBE ONE (14:54)
[2023-05-24] MEDS ORDERED: Sodium Chloride 0.9% 0 ML ONE (16:00)
[2023-05-24] MEDS ORDERED: Vancomycin HCl 500 MG VIAL ONE (16:00)
[2023-05-24] MEDS ORDERED: Vancomycin 1 GM/200 ML (FROZEN) BAG ONE (16:01)
[2023-05-24] MEDS: Vancomycin 1 GM in Premix 1 BAG IVPB SCH (16:05)
[2023-05-24] MEDS ORDERED: Vancomycin 1 GM VIAL ONE (16:52)
[2023-05-24] MEDS ORDERED: fentaNYL 50 mcg/mL 1 mL Vial ONE ×3 (17:15→19:26)
[2023-05-24] MEDS ORDERED: PROPOFOL 200 MG/20 ML VIAL ONE (17:27)
[2023-05-24] MEDS ORDERED: Ondansetron PF 4 MG/2 ML Vial ONE (17:27)
[2023-05-24] MEDS ORDERED: Lidocaine 1% PF 5 ML VIAL ONE (17:27)
[2023-05-24] MEDS ORDERED: Ondansetron HCl/PF 4 MG/2 ML Vial IVP PRN (19:03)
[2023-05-24] MEDS ORDERED: Promethazine HCl 25 MG/ML VIAL IM PRN (19:03)
[2023-05-25] MEDS: Cefepime 1 GM in Sodium Chloride 0.9% 100 ML IVPB SCH ×2 (03:49→15:37)
[2023-05-25] MEDS: Sodium Chloride 0.9% 1,000 ML IV SCH ×3 (03:51→13:39)
[2023-05-25] MEDS: Amlodipine 5 MG TAB PO SCH (10:01)
[2023-05-25] MEDS: Insulin Glargine 30 UNITS/0.3 ML VIAL SC SCH ×2 (10:02→20:48)
[2023-05-25] MEDS: HumaLOG 300 UNITS/3 ML VIAL SC PRN ×2 (13:15→18:34)
[2023-05-25 16:06] LABS: Vancomycin, Trough 11.7 ug/mL
[2023-05-25] MEDS: Vancomycin 1 GM in Premix 1 BAG IVPB SCH (16:50)
[2023-05-25] MEDS: Acetaminophen 325 MG TAB PO PRN (20:47)
[2023-05-25] MEDS: Amlodipine 10 MG TAB PO SCH (20:47)
[2023-05-25] MEDS: metroNIDAZOLE 500 MG TAB PO SCH (20:48)
[2023-05-26] MEDS: Cefepime 1 GM in Sodium Chloride 0.9% 100 ML IVPB SCH ×2 (04:00→14:34)
[2023-05-26] MEDS: Sodium Chloride 0.9% 1,000 ML IV SCH ×2 (04:00→19:36)
[2023-05-26 05:49] LABS: #Basophils 0.1 thou/uL (0.0-0.2); #Eosinphils 0.2 thou/uL (0.0-0.7); #Neutrophils 12.6 thou/uL (1.40-6.50); %Basophils 0.3 % (0.0-1.0); %Eosinophils 1.3 % (0.0-10.0); %Lymphocytes 6.8 % (21.0-51.0); %Monocytes 6.6 % (0.0-10.0); Hematocrit 33.6 % (42.0-52.0); Mean Corpuscular HGB CONC 32.7 g/dL (32.0-36.0); Mean Corpuscular Hemoglobin 29.3 pg (27.0-31.0); Mean Corpuscular Volume 89.6 fl (78.0-98.0); Mean Platelet Volume 10.5 fL (7.4-10.4); Platelet Count 241 10x3/uL (130-400); RBC Distribution Width 13.5 % (11.5-14.5); Red Blood Cell (RBC) Count 3.75 mill/uL (4.70-6.10); White Blood Cell (WBC) Count 15.4 10x3/uL (4.8-10.8)
[2023-05-26 06:12] LABS: Anion Gap 12 mmol/L (10-20); BUN (Urea Nitrogen) 19 mg/dL (8.4-25.7); Calc. Creatinine Clearance 68 mL/min (70-130); Calcium 8.3 mg/dL (7.8-10.44); Carbon Dioxide 22 mmol/L (23-31); Chloride 107 mmol/L (98-107); Estimated GFR 48; Glucose 149 mg/dL (80-115); Potassium 3.7 mmol/L (3.5-5.1); Sodium 137 mmol/L (136-145)
[2023-05-26] MEDS: metroNIDAZOLE 500 MG TAB PO SCH ×3 (08:33→20:36)
[2023-05-26] MEDS: Empagliflozin 10 MG TAB PO SCH (08:34)
[2023-05-26] MEDS: Insulin Glargine 30 UNITS/0.3 ML VIAL SC SCH ×2 (08:34→20:35)
[2023-05-26] MEDS: Torsemide 20 MG TAB PO SCH (08:34)
[2023-05-26] MEDS: Docusate 100 MG CAP PO PRN (14:34)
[2023-05-26] MEDS ORDERED: EVOLOCUMAB 140 MG SC SCH (16:45)
[2023-05-26] MEDS ORDERED: Vancomycin 1 GM in Premix 1 BAG IVPB SCH (18:00)
[2023-05-26] MEDS: HumaLOG 300 UNITS/3 ML VIAL SC PRN (18:44)
[2023-05-26] MEDS: Vancomycin (BATCH) 1.25 GM in Premix 1 BAG IVPB SCH (19:16)
[2023-05-26] MEDS: Amlodipine 10 MG TAB PO SCH (20:36)
[2023-05-27] MEDS: Sodium Chloride 0.9% 1,000 ML IV SCH ×3 (03:00→17:30)
[2023-05-27] MEDS: Cefepime 1 GM in Sodium Chloride 0.9% 100 ML IVPB SCH ×2 (03:00→14:26)
[2023-05-27 05:31] LABS: #Basophils 0.1 thou/uL (0.0-0.2); #Eosinphils 0.1 thou/uL (0.0-0.7); #Monocytes 0.9 thou/uL (0.11-0.59); #Neutrophils 13.7 thou/uL (1.40-6.50); %Basophils 0.3 % (0.0-1.0); %Eosinophils 0.8 % (0.0-10.0); %Lymphocytes 7.7 % (21.0-51.0); %Monocytes 5.6 % (0.0-10.0); %Neutrophils 83.2 % (42.0-75.0); Hemoglobin 11.7 g/dL (14.0-18.0); Mean Corpuscular HGB CONC 32.5 g/dL (32.0-36.0); Mean Corpuscular Hemoglobin 28.8 pg (27.0-31.0); Mean Corpuscular Volume 88.7 fl (78.0-98.0); Mean Platelet Volume 10.6 fL (7.4-10.4); Platelet Count 277 10x3/uL (130-400); RBC Distribution Width 13.5 % (11.5-14.5); Red Blood Cell (RBC) Count 4.06 mill/uL (4.70-6.10); White Blood Cell (WBC) Count 16.5 10x3/uL (4.8-10.8)
[2023-05-27 06:03] LABS: Anion Gap 14 mmol/L (10-20); BUN (Urea Nitrogen) 18 mg/dL (8.4-25.7); Calc. Creatinine Clearance 66 mL/min (70-130); Calcium 8.5 mg/dL (7.8-10.44); Carbon Dioxide 22 mmol/L (23-31); Chloride 103 mmol/L (98-107); Estimated GFR 46; Glucose 89 mg/dL (80-115); Potassium 3.7 mmol/L (3.5-5.1); Sodium 135 mmol/L (136-145)
[2023-05-27] MEDS ORDERED: Bisacodyl 5 MG TAB PO PRN (09:39)
[2023-05-27] MEDS: Torsemide 20 MG TAB PO SCH (09:55)
[2023-05-27] MEDS: Insulin Glargine 30 UNITS/0.3 ML VIAL SC SCH ×2 (09:55→20:51)
[2023-05-27] MEDS: Empagliflozin 10 MG TAB PO SCH (09:55)
[2023-05-27] MEDS: metroNIDAZOLE 500 MG TAB PO SCH ×3 (09:55→20:50)
[2023-05-27] MEDS: Docusate 100 MG CAP PO PRN (10:00)
[2023-05-27] MEDS: HYDROcodone/Acetaminophen 5/325 mg Tablet PO PRN (10:05)
[2023-05-27] MEDS: HumaLOG 300 UNITS/3 ML VIAL SC PRN ×2 (11:56→16:17)
[2023-05-27] MEDS: Vancomycin (BATCH) 1.25 GM in Premix 1 BAG IVPB SCH (17:33)
[2023-05-27] MEDS: Amlodipine 10 MG TAB PO SCH (20:50)
[2023-05-28] MEDS: Cefepime 1 GM in Sodium Chloride 0.9% 100 ML IVPB SCH ×2 (03:17→15:01)
[2023-05-28] MEDS: Sodium Chloride 0.9% 1,000 ML IV SCH ×2 (03:52→15:01)
[2023-05-28 06:36] LABS: #Eosinphils 0.2 thou/uL (0.0-0.7); #Neutrophils 10.1 thou/uL (1.40-6.50); %Basophils 0.3 % (0.0-1.0); %Eosinophils 1.3 % (0.0-10.0); %Lymphocytes 8.9 % (21.0-51.0); %Monocytes 8.1 % (0.0-10.0); %Neutrophils 79.4 % (42.0-75.0); Hematocrit 30.5 % (42.0-52.0); Mean Corpuscular HGB CONC 32.8 g/dL (32.0-36.0); Mean Corpuscular Hemoglobin 28.8 pg (27.0-31.0); Mean Corpuscular Volume 87.9 fl (78.0-98.0); Mean Platelet Volume 10.4 fL (7.4-10.4); Platelet Count 226 10x3/uL (130-400); RBC Distribution Width 13.5 % (11.5-14.5); Red Blood Cell (RBC) Count 3.47 mill/uL (4.70-6.10); White Blood Cell (WBC) Count 12.6 10x3/uL (4.8-10.8)
[2023-05-28 06:55] LABS: Anion Gap 11 mmol/L (10-20); BUN (Urea Nitrogen) 16 mg/dL (8.4-25.7); Calc. Creatinine Clearance 76 mL/min (70-130); Carbon Dioxide 23 mmol/L (23-31); Chloride 105 mmol/L (98-107); Estimated GFR 55; Glucose 144 mg/dL (80-115); Potassium 3.4 mmol/L (3.5-5.1); Sodium 136 mmol/L (136-145)
[2023-05-28] MEDS: Empagliflozin 10 MG TAB PO SCH (09:42)
[2023-05-28] MEDS: Insulin Glargine 30 UNITS/0.3 ML VIAL SC SCH ×2 (09:42→21:00)
[2023-05-28] MEDS: metroNIDAZOLE 500 MG TAB PO SCH ×3 (09:44→21:00)
[2023-05-28] MEDS: Torsemide 20 MG TAB PO SCH (09:44)
[2023-05-28] MEDS: Docusate 100 MG CAP PO PRN (09:46)
[2023-05-28] MEDS ORDERED: Potassium Chloride 20 MEQ TAB PO SCH (10:00)
[2023-05-28] MEDS: HYDROcodone/Acetaminophen 5/325 mg Tablet PO PRN (11:11)
[2023-05-28] MEDS: HumaLOG 300 UNITS/3 ML VIAL SC PRN ×2 (12:57→16:29)
[2023-05-28] MEDS: cloNIDine 0.1 MG TAB PO PRN (16:39)
[2023-05-28 17:12] LABS: Vancomycin, Trough 15.2 ug/mL
[2023-05-28] MEDS: Vancomycin (BATCH) 1.5 GM in Premix 1 BAG IVPB SCH (18:16)
[2023-05-28] MEDS: Amlodipine 10 MG TAB PO SCH (21:00)
[2023-05-29] MEDS: Cefepime 1 GM in Sodium Chloride 0.9% 100 ML IVPB SCH (04:53)
[2023-05-29 05:53] LABS: #Eosinphils 0.1 thou/uL (0.0-0.7); #Monocytes 0.8 thou/uL (0.11-0.59); #Neutrophils 9.7 thou/uL (1.40-6.50); %Basophils 0.3 % (0.0-1.0); %Eosinophils 1.1 % (0.0-10.0); %Lymphocytes 10.9 % (21.0-51.0); %Monocytes 6.7 % (0.0-10.0); %Neutrophils 79.2 % (42.0-75.0); Hematocrit 33.6 % (42.0-52.0); Hemoglobin 11.1 g/dL (14.0-18.0); Mean Corpuscular Hemoglobin 29.3 pg (27.0-31.0); Mean Corpuscular Volume 88.7 fl (78.0-98.0); Mean Platelet Volume 10.8 fL (7.4-10.4); Platelet Count 278 10x3/uL (130-400); RBC Distribution Width 13.5 % (11.5-14.5); Red Blood Cell (RBC) Count 3.79 mill/uL (4.70-6.10); White Blood Cell (WBC) Count 12.2 10x3/uL (4.8-10.8)
[2023-05-29 06:25] LABS: Anion Gap 13 mmol/L (10-20); BUN (Urea Nitrogen) 12 mg/dL (8.4-25.7); Calc. Creatinine Clearance 77 mL/min (70-130); Calcium 8.2 mg/dL (7.8-10.44); Carbon Dioxide 24 mmol/L (23-31); Chloride 105 mmol/L (98-107); Estimated GFR 56; Glucose 85 mg/dL (80-115); Potassium 3.5 mmol/L (3.5-5.1); Sodium 138 mmol/L (136-145)
[2023-05-29] MEDS: Insulin Glargine 30 UNITS/0.3 ML VIAL SC SCH ×2 (09:01→20:54)
[2023-05-29] MEDS: metroNIDAZOLE 500 MG TAB PO SCH ×3 (09:01→20:51)
[2023-05-29] MEDS: Empagliflozin 10 MG TAB PO SCH (09:01)
[2023-05-29] MEDS: Torsemide 20 MG TAB PO SCH (09:01)
[2023-05-29] MEDS: Sodium Chloride 0.9% 1,000 ML IV SCH ×2 (09:02→23:52)
[2023-05-29] MEDS: Vancomycin (BATCH) 1.5 GM in Premix 1 BAG IVPB SCH (16:14)
[2023-05-29] MEDS: Amlodipine 10 MG TAB PO SCH (23:52)
[2023-05-30 06:40] LABS: #Basophils 0.1 thou/uL (0.0-0.2); #Eosinphils 0.2 thou/uL (0.0-0.7); #Monocytes 1.1 thou/uL (0.11-0.59); #Neutrophils 8.1 thou/uL (1.40-6.50); %Basophils 0.6 % (0.0-1.0); %Eosinophils 1.6 % (0.0-10.0); %Lymphocytes 12.5 % (21.0-51.0); %Neutrophils 73.7 % (42.0-75.0); Hemoglobin 10.3 g/dL (14.0-18.0); Mean Corpuscular HGB CONC 32.2 g/dL (32.0-36.0); Mean Corpuscular Hemoglobin 28.5 pg (27.0-31.0); Mean Corpuscular Volume 88.6 fl (78.0-98.0); Mean Platelet Volume 10.8 fL (7.4-10.4); Platelet Count 252 10x3/uL (130-400); RBC Distribution Width 13.5 % (11.5-14.5); Red Blood Cell (RBC) Count 3.61 mill/uL (4.70-6.10); White Blood Cell (WBC) Count 10.9 10x3/uL (4.8-10.8)
[2023-05-30 07:22] LABS: Anion Gap 12 mmol/L (10-20); BUN (Urea Nitrogen) 14 mg/dL (8.4-25.7); Calc. Creatinine Clearance 66 mL/min (70-130); Calcium 8.1 mg/dL (7.8-10.44); Carbon Dioxide 27 mmol/L (23-31); Chloride 104 mmol/L (98-107); Estimated GFR 46; Glucose 167 mg/dL (80-115); Potassium 3.6 mmol/L (3.5-5.1); Sodium 139 mmol/L (136-145)
[2023-05-30] MEDS: Empagliflozin 10 MG TAB PO SCH (08:36)
[2023-05-30] MEDS: metroNIDAZOLE 500 MG TAB PO SCH ×3 (08:36→20:22)
[2023-05-30] MEDS: Torsemide 20 MG TAB PO SCH (08:36)
[2023-05-30] MEDS: Insulin Glargine 30 UNITS/0.3 ML VIAL SC SCH ×2 (08:38→20:25)
[2023-05-30] MEDS: cloNIDine 0.1 MG TAB PO PRN ×3 (08:47→18:33)
[2023-05-30] MEDS: Sodium Chloride 0.9% 1,000 ML IV SCH ×2 (08:47→20:22)
[2023-05-30] MEDS: HumaLOG 300 UNITS/3 ML VIAL SC PRN (12:56)
[2023-05-30] MEDS: Vancomycin (BATCH) 1.5 GM in Premix 1 BAG IVPB SCH (17:31)
[2023-05-30 18:13] LABS: Vancomycin, Random 19.3 ug/mL (See Comment)
[2023-05-30] MEDS: Amlodipine 10 MG TAB PO SCH (20:22)
[2023-05-31 06:17] LABS: #Eosinphils 0.1 thou/uL (0.0-0.7); #Monocytes 1.2 thou/uL (0.11-0.59); #Neutrophils 8.4 thou/uL (1.40-6.50); %Basophils 0.3 % (0.0-1.0); %Eosinophils 0.6 % (0.0-10.0); %Lymphocytes 14.7 % (21.0-51.0); Hematocrit 30.3 % (42.0-52.0); Hemoglobin 9.9 g/dL (14.0-18.0); Mean Corpuscular HGB CONC 32.7 g/dL (32.0-36.0); Mean Corpuscular Hemoglobin 29.2 pg (27.0-31.0); Mean Corpuscular Volume 89.4 fl (78.0-98.0); Mean Platelet Volume 10.4 fL (7.4-10.4); Platelet Count 281 10x3/uL (130-400); RBC Distribution Width 13.4 % (11.5-14.5); Red Blood Cell (RBC) Count 3.39 mill/uL (4.70-6.10); White Blood Cell (WBC) Count 11.5 10x3/uL (4.8-10.8)
[2023-05-31 06:46] LABS: Anion Gap 12 mmol/L (10-20); BUN (Urea Nitrogen) 18 mg/dL (8.4-25.7); Calc. Creatinine Clearance 81 mL/min (70-130); Calcium 8.2 mg/dL (7.8-10.44); Carbon Dioxide 29 mmol/L (23-31); Chloride 102 mmol/L (98-107); Estimated GFR 59; Glucose 106 mg/dL (80-115); Potassium 3.5 mmol/L (3.5-5.1); Sodium 139 mmol/L (136-145)
[2023-05-31] MEDS: Torsemide 20 MG TAB PO SCH (08:20)
[2023-05-31] MEDS: Empagliflozin 10 MG TAB PO SCH (08:20)
[2023-05-31] MEDS: Insulin Glargine 30 UNITS/0.3 ML VIAL SC SCH (08:21)
[2023-05-31] MEDS: metroNIDAZOLE 500 MG TAB PO SCH ×2 (08:21→16:24)
[2023-05-31] MEDS: cloNIDine 0.1 MG TAB PO PRN (13:07)
[2023-05-31 15:36] VITALS: BP 158/71
[2023-05-31] MEDS ORDERED: Vancomycin (BATCH) 1.25 GM in Premix 1 BAG IVPB SCH (18:00)
[2023-05-31 18:19] VITALS: TEMP 98.7
== END 2023-05-31 18:14 | disposition home or self-care (01) | DRG 854 ==
LOC: ERS 12:29 → ERHOLD 14:42 → T4-A 18:34
PROVIDERS: ADMIT Family Medicine; ATTEND Internal Medicine
PROC: 3E03329 Introduction of Other Anti-infective into Peripheral Vein, Percutaneous Approach (ICD-10-PCS; 2023-05-23)
PROC: 0Y6M0ZF Detachment at Right Foot, Partial 5th Ray, Open Approach (ICD-10-PCS; 2023-05-24)
PROC: 02HV33Z Insertion of Infusion Device into Superior Vena Cava, Percutaneous Approach (ICD-10-PCS; principal; 2023-05-26)
PROC: B5181ZA Fluoroscopy of Superior Vena Cava using Low Osmolar Contrast, Guidance (ICD-10-PCS; 2023-05-26)
PROC: B548ZZA Ultrasonography of Superior Vena Cava, Guidance (ICD-10-PCS; 2023-05-26)
DX: A41.9 Sepsis, unspecified organism (principal); E11.52 Type 2 diabetes mellitus with diabetic peripheral angiopathy with gangrene; L03.115 Cellulitis of right lower limb; M86.8X7 Other osteomyelitis, ankle and foot; Z16.29 Resistance to other single specified antibiotic; N17.9 Acute kidney failure, unspecified; E87.20 Acidosis, unspecified; E87.1 Hypo-osmolality and hyponatremia; R65.20 Severe sepsis without septic shock; E78.00 Pure hypercholesterolemia, unspecified; E11.69 Type 2 diabetes mellitus with other specified complication; E11.621 Type 2 diabetes mellitus with foot ulcer; L97.519 Non-pressure chronic ulcer of other part of right foot with unspecified severity; E11.65 Type 2 diabetes mellitus with hyperglycemia; E11.40 Type 2 diabetes mellitus with diabetic neuropathy, unspecified; N18.30 Chronic kidney disease, stage 3 unspecified; I12.9 Hypertensive chronic kidney disease with stage 1 through stage 4 chronic kidney disease, or unspecified chronic kidney disease; E11.22 Type 2 diabetes mellitus with diabetic chronic kidney disease; E87.6 Hypokalemia; E88.09 Other disorders of plasma-protein metabolism, not elsewhere classified; Z79.4 Long term (current) use of insulin; Z95.1 Presence of aortocoronary bypass graft; Z90.49 Acquired absence of other specified parts of digestive tract; Z88.8 Allergy status to other drugs, medicaments and biological substances; Z88.5 Allergy status to narcotic agent; Z79.899 Other long term (current) drug therapy
CPT/HCPCS: 36415; 36416; 36569; 80048; 80053; 80202; 83605; 85025; 86140; 87040; 87070; 87077; 87186; 87205; 96361; 96365; 96367; 97139; J0692; J1815; J2001; J2405; J2704; J3010; J3370; J3370-JW; J3490; J7050; S0020

== ENCOUNTER 2024-08-01 09:54 | Outpatient (CLI) | payer BC | END 2024-08-01 09:55 | disposition home or self-care (01) | LOC: BICRAD 09:54 | PROVIDERS: ATTEND Podiatrist | DX: L97.529 Non-pressure chronic ulcer of other part of left foot with unspecified severity (principal); M79.89 Other specified soft tissue disorders ==

== ENCOUNTER 2024-08-23 21:47 | Inpatient (IN) | payer BC, MEDICARE, SELFPAY ==
[2024-08-23] MEDS ORDERED: Acetaminophen 500 MG TAB ONE (22:36)
[2024-08-23 22:38] LABS: #Basophils 0.05 10x3/uL (0.0-0.2); %Basophils 0.5 % (0.0-1.0); %Eosinophils 0.5 % (0.0-10.0); %Lymphocytes 9.9 % (21.0-51.0); %Monocytes 11.6 % (0.0-10.0); %Neutrophils 76.8 % (42.0-75.0); ALT (SGPT) 7 U/L (8-55); AST (SGOT) 24 U/L (5-34); Albumin 2.7 g/dL (3.4-4.8); Alkaline Phosphatase 80 U/L (40-110); Anion Gap 13 mmol/L (10-20); BUN (Urea Nitrogen) 33 mg/dL (8.4-25.7); Bilirubin, Total 0.3 mg/dL (0.2-1.2); Calc. Creatinine Clearance 0 mL/min (70-130); Carbon Dioxide 19 mmol/L (23-31); Chloride 105 mmol/L (98-107); Estimated GFR 21; Globulin 3.6 g/dL (2.4-3.5); Glucose 298 mg/dL (80-115); Hematocrit 37.4 % (42.0-52.0); Hemoglobin 12.4 g/dL (14.0-18.0); Mean Corpuscular HGB CONC 33.2 g/dL (32.0-36.0); Mean Corpuscular Hemoglobin 27.6 pg (27.0-31.0); Mean Corpuscular Volume 83.1 fL (78.0-98.0); Mean Platelet Volume 9.7 fL (7.4-10.4); Platelet Count 214 10x3/uL (130-400); Potassium 3.7 mmol/L (3.5-5.1); Protein, Total 6.3 g/dL (5.8-8.1); RBC Distribution Width 13.8 % (11.5-14.5); Sodium 133 mmol/L (136-145)
[2024-08-23 22:46] LABS: Lipase 12 U/L (8-78); Magnesium 1.5 mg/dL (1.6-2.6)
[2024-08-23 22:53] LABS: Troponin I 0.044 ng/mL (< 0.028)
[2024-08-23] MEDS ORDERED: Aspirin Chewable 81 MG TAB ONE (23:59)
[2024-08-24] MEDS ORDERED: Acetaminophen 650 MG Suppository PR PRN (00:38)
[2024-08-24] MEDS ORDERED: Ondansetron PF 4 MG/2 ML Vial IVP PRN (00:38)
[2024-08-24] MEDS ORDERED: Ondansetron ODT 4 MG TAB PO PRN (00:38)
[2024-08-24] MEDS ORDERED: Dextrose 5% in Water 1,000 ML IV PRN (00:39)
[2024-08-24] MEDS ORDERED: Glucagon 1 MG/ML KIT IM PRN (00:39)
[2024-08-24] MEDS ORDERED: Dextrose 50% Abboject 50 ML SYRINGE SLOW IVP PRN (00:39)
[2024-08-24 01:57] LABS: Troponin I 0.045 ng/mL (< 0.028)
[2024-08-24] MEDS: Magnesium 2 GM/50 ML(in water) 2 GM in Premix 1 BAG IVPB SCH (02:59)
[2024-08-24 03:35] VITALS: BMI 33.0
[2024-08-24] MEDS: hydrALAZINE 20 MG/ML VIAL SLOW IVP SCH ×2 (04:45→12:31)
[2024-08-24] MEDS: Acetaminophen 325 MG TAB PO PRN (04:55)
[2024-08-24 04:57] LABS: #Basophils 0.05 10x3/uL (0.0-0.2); %Basophils 0.7 % (0.0-1.0); %Eosinophils 0.9 % (0.0-10.0); %Lymphocytes 16.7 % (21.0-51.0); %Monocytes 13.4 % (0.0-10.0); %Neutrophils 67.4 % (42.0-75.0); Hematocrit 34.8 % (42.0-52.0); Hemoglobin 11.4 g/dL (14.0-18.0); Mean Corpuscular HGB CONC 32.8 g/dL (32.0-36.0); Mean Corpuscular Hemoglobin 27.7 pg (27.0-31.0); Mean Corpuscular Volume 84.5 fL (78.0-98.0); Platelet Count 189 10x3/uL (130-400); RBC Distribution Width 13.8 % (11.5-14.5); Red Blood Cell (RBC) Count 4.12 mill/uL (4.70-6.10)
[2024-08-24 05:11] LABS: Anion Gap 11 mmol/L (10-20); BUN (Urea Nitrogen) 31 mg/dL (8.4-25.7); Calc. Creatinine Clearance 36 mL/min (70-130); Calcium 7.7 mg/dL (7.8-10.44); Carbon Dioxide 21 mmol/L (23-31); Chloride 104 mmol/L (98-107); Estimated GFR 21; Glucose 247 mg/dL (80-115); Potassium 3.4 mmol/L (3.5-5.1); Sodium 133 mmol/L (136-145)
[2024-08-24 05:15] LABS: Troponin I 0.045 ng/mL (< 0.028)
[2024-08-24] MEDS: Famotidine/PF 20 mg/2ml Vial SLOW IVP SCH (08:14)
[2024-08-24] MEDS: Torsemide 20 MG TAB PO SCH (08:23)
[2024-08-24] MEDS: Potassium Chloride 20 MEQ TAB PO SCH (08:23)
[2024-08-24] MEDS: Famotidine 20 MG TAB PO SCH (08:23)
[2024-08-24] MEDS: Insulin Lispro 100 UNIT/ML 10 ML VIAL SC PRN ×2 (12:32→21:24)
[2024-08-24] MEDS: hydrALAZINE 25 MG TAB PO SCH (14:42)
[2024-08-24] MEDS: Benzonatate 100 MG CAP PO PRN (14:43)
[2024-08-24] MEDS: Oseltamivir 6 MG/ML ORAL SUSP PO SCH (18:50)
[2024-08-24] MEDS: Amlodipine 10 MG TAB PO SCH (21:23)
[2024-08-24] MEDS: Metoprolol Succinate XL 50 MG ER.TAB PO SCH (21:24)
[2024-08-24] MEDS: Insulin Glargine 30 UNITS/0.3 ML VIAL SC SCH (21:26)
[2024-08-25 03:56] LABS: #Basophils 0.05 10x3/uL (0.0-0.2); %Basophils 0.5 % (0.0-1.0); %Eosinophils 0.4 % (0.0-10.0); %Monocytes 10.5 % (0.0-10.0); %Neutrophils 78.1 % (42.0-75.0); Hematocrit 33.4 % (42.0-52.0); Hemoglobin 11.3 g/dL (14.0-18.0); Mean Corpuscular HGB CONC 33.8 g/dL (32.0-36.0); Mean Corpuscular Hemoglobin 28.1 pg (27.0-31.0); Mean Corpuscular Volume 83.1 fL (78.0-98.0); Mean Platelet Volume 9.6 fL (7.4-10.4); Platelet Count 170 10x3/uL (130-400); RBC Distribution Width 13.9 % (11.5-14.5); Red Blood Cell (RBC) Count 4.02 mill/uL (4.70-6.10)
[2024-08-25 04:11] LABS: Anion Gap 12 mmol/L (10-20); BUN (Urea Nitrogen) 31 mg/dL (8.4-25.7); Calc. Creatinine Clearance 37 mL/min (70-130); Calcium 7.9 mg/dL (7.8-10.44); Carbon Dioxide 20 mmol/L (23-31); Chloride 103 mmol/L (98-107); Estimated GFR 22; Glucose 260 mg/dL (80-115); Magnesium 1.8 mg/dL (1.6-2.6); Potassium 3.8 mmol/L (3.5-5.1); Sodium 131 mmol/L (136-145)
[2024-08-25] MEDS ORDERED: Evolocumab [Repatha Sureclick] 140 MG/ML Pen.Injctr DT SCH (09:00)
[2024-08-25] MEDS: Oseltamivir 6 MG/ML ORAL SUSP PO SCH (14:03)
[2024-08-25] MEDS: Sodium Chloride 0.9% 500 ML IV SCH (19:07)
[2024-08-25] MEDS: Insulin Glargine 30 UNITS/0.3 ML VIAL SC SCH (20:59)
[2024-08-25] MEDS: hydrALAZINE 20 MG/ML VIAL SLOW IVP SCH (23:57)
[2024-08-26 04:57] LABS: #Basophils 0.04 10x3/uL (0.0-0.2); %Basophils 0.4 % (0.0-1.0); %Eosinophils 0.8 % (0.0-10.0); %Lymphocytes 13.3 % (21.0-51.0); %Monocytes 8.6 % (0.0-10.0); %Neutrophils 76.4 % (42.0-75.0); Hematocrit 35.9 % (42.0-52.0); Hemoglobin 11.8 g/dL (14.0-18.0); Mean Corpuscular HGB CONC 32.9 g/dL (32.0-36.0); Mean Corpuscular Hemoglobin 27.6 pg (27.0-31.0); Mean Corpuscular Volume 84.1 fL (78.0-98.0); Mean Platelet Volume 10.3 fL (7.4-10.4); Platelet Count 176 10x3/uL (130-400); RBC Distribution Width 13.9 % (11.5-14.5); Red Blood Cell (RBC) Count 4.27 mill/uL (4.70-6.10)
[2024-08-26 05:17] LABS: Anion Gap 14 mmol/L (10-20); BUN (Urea Nitrogen) 37 mg/dL (8.4-25.7); Calc. Creatinine Clearance 37 mL/min (70-130); Calcium 7.9 mg/dL (7.8-10.44); Carbon Dioxide 19 mmol/L (23-31); Chloride 104 mmol/L (98-107); Estimated GFR 22; Glucose 202 mg/dL (80-115); Potassium 3.7 mmol/L (3.5-5.1); Sodium 133 mmol/L (136-145)
[2024-08-26] MEDS: hydrALAZINE 25 MG TAB PO SCH (08:20)
[2024-08-26 15:31] VITALS: BP 170/80; TEMP 98.9
[2024-08-26] MEDS ORDERED: Famotidine/PF 20 mg/2ml Vial SLOW IVP SCH (21:00)
[2024-08-26] MEDS ORDERED: Famotidine 20 MG TAB PO SCH (21:00)
== END 2024-08-26 18:26 | disposition home or self-care (01) | DRG 194 ==
LOC: ERS 21:47 → 2SE 08-24 00:03
PROVIDERS: ADMIT Student in an Organized Health Care Education/Training Program; ATTEND Student in an Organized Health Care Education/Training Program
DX: J10.1 Influenza due to other identified influenza virus with other respiratory manifestations (principal); I24.89 Other forms of acute ischemic heart disease; N17.9 Acute kidney failure, unspecified; N18.4 Chronic kidney disease, stage 4 (severe); E78.00 Pure hypercholesterolemia, unspecified; I25.10 Atherosclerotic heart disease of native coronary artery without angina pectoris; E11.22 Type 2 diabetes mellitus with diabetic chronic kidney disease; I12.9 Hypertensive chronic kidney disease with stage 1 through stage 4 chronic kidney disease, or unspecified chronic kidney disease; E66.01 Morbid (severe) obesity due to excess calories; I25.5 Ischemic cardiomyopathy; Z90.49 Acquired absence of other specified parts of digestive tract; Z95.1 Presence of aortocoronary bypass graft; Z79.899 Other long term (current) drug therapy; Z79.84 Long term (current) use of oral hypoglycemic drugs; Z91.041 Radiographic dye allergy status; Z91.040 Latex allergy status; Z88.5 Allergy status to narcotic agent; Z88.8 Allergy status to other drugs, medicaments and biological substances; E11.65 Type 2 diabetes mellitus with hyperglycemia; Z68.33 Body mass index [BMI] 33.0-33.9, adult
CPT/HCPCS: 36415; 36416; 71045; 80048; 80053; 83605; 83690; 83735; 83880; 84484; 85025; 87428; 93005; J0360; J1815; J3475; J7030